=== PATIENT | female | born 1990 | race Caucasian/White ===

== ENCOUNTER 2016-08-19 03:05 | Inpatient (IN) | payer BC ==
[2016-08-19] MEDS ORDERED: Lidocaine 1% 50 ML MDV INJECT PRN (03:45)
[2016-08-19] MEDS ORDERED: Nalbuphine 20 MG/1 ML Amp IVPUSH PRN (03:45)
[2016-08-19] MEDS ORDERED: Oxytocin/Lactated Ringers 10 UNIT/1,000 ML BAG IV SCH ×2 (03:45→09:00)
[2016-08-19] MEDS ORDERED: Sodium Chloride 0.9% 10 ML Syringe FLUSH PRN (03:45)
[2016-08-19] MEDS: Lactated Ringers 1,000 ML IV SCH ×3 (03:50→07:55)
[2016-08-19] MEDS ORDERED: Ampicillin 2 GM in Sodium Chloride 0.9% 100 ML IV ONE (04:00)
[2016-08-19] MEDS ORDERED: ePHEDrine 50 MG/ML SDV IVPUSH PRN (04:05)
[2016-08-19] MEDS ORDERED: fentaNYL 100 MCG/2 ML SDV EPIDUR PRN (04:05)
[2016-08-19] MEDS ORDERED: diphenhydrAMINE 50 MG/ML SDV IVPUSH PRN (04:05)
[2016-08-19] MEDS ORDERED: Ondansetron 4 MG/2 ML SDV IVPUSH PRN (04:05)
--- NOTE | 2016-08-19 04:12 | PCM.PREANE ---
Preanesthetic Assessment - Anesthesia/Transfusion/Family Hx Anesthesia History: Prior Anesthesia Without Reaction Family History of Anesthesia Reaction: No Transfusion History: No Prior Transfusion(s) Intubation History: Unknown - Review of Systems General: No Symptoms Pulmonary: No Symptoms Cardiovascular: No Symptoms Gastrointestinal: Other (GERD) Neurological: No Symptoms Other: Reports: None - Physical Assessment NPO Status Date: 08/18/16 NPO Status Time: 21:00 Pulse: 87 O2 Sat by Pulse Oximetry: 98 Respiratory Rate: 22 Blood Pressure: 144/86 Height: 1.68 m Weight: 97.704 kg Mental Status: Alert & Oriented x3 Airway Class: Mallampati = 2 Dentition: Reports: Normal Dentition Thyro-Mental Finger Breadths: 3 Mouth Opening Finger Breadths: 3 ROM/Head Extension: Full Lungs: Clear to auscultation, Normal respiratory effort Cardiovascular: Regular Rate, Regular Rhythm - Lab Values: Laboratory Last Values WBC 8.72 K/mm3 (3.98-10.04) 08/19/16 03:45 RBC 4.26 M/mm3 (3.98-5.22) 08/19/16 03:45 Hgb 13.0 gm/L (11.2-15.7) 08/19/16 03:45 Hct 38.0 % (34.1-44.9) 08/19/16 03:45 MCV 89.2 fl (79.4-94.8) 08/19/16 03:45 MCH 30.5 pg (25.6-32.2) 08/19/16 03:45 MCHC 34.2 g/dl (32.2-35.5) 08/19/16 03:45 RDW Std Deviation 45.5 fL (36.4-46.3) 08/19/16 03:45 Plt Count 178 K/mm3 (182-369) L 08/19/16 03:45 MPV 11.3 fl (9.4-12.3) 08/19/16 03:45 - Allergies Allergies/Adverse Reactions: Allergies Allergy/AdvReac Type Severity Reaction Status Date / Time No Known Allergies Allergy Verified 08/19/16 03:45 - Blood Blood Available: No Product(s) Available: None - Acknowledgements Anesthesia Type Planned: Epidural Pt an Appropriate Candidate for the Planned Anesthesia: Yes Alternatives and Risks of Anesthesia Discussed w Pt/Guardian: Yes Pt/Guardian Understands and Agrees with Anesthesia Plan: Yes PreAnesthesia Questionnaire - SUBSTANCE USE Smoking Status *Q: Never Smoker Second Hand Smoke Exposure: No Recreational Drug Use History: No - CURRENT (IN HOUSE) MEDS Current Meds: Current Medications Ampicillin Sodium 1 gm/ Sodium (Chloride) 100 mls @ 200 mls/hr IV Q4H MARY JANE Ampicillin Sodium 2 gm/ Sodium (Chloride) 100 mls @ 200 mls/hr IV ONETIME ONE Stop: 08/19/16 04:29 Lactated Ringer's (Ringers, Lactated) 1,000 mls @ 100 mls/hr IV ASDIRECTED MARY JANE Oxytocin/Lactated Ringer's (Pitocin In Lr 10 Units/1,000 Ml) 10 unit in 1,000 mls @ 500 mls/hr IV TITRATE MARY JANE Lidocaine HCl (Xylocaine 1%) 10 ml INJECT ONETIME PRN PRN Reason: Perineal Comfort Measure Nalbuphine HCl (Nubain) 10 mg IVPUSH Q2H PRN PRN Reason: Pain (moderate 4-6) Sodium Chloride (Saline Flush) 10 ml FLUSH ASDIRECTED PRN PRN Reason: Keep Vein Open
[2016-08-19] MEDS ORDERED: Bupivacaine/fentaNYL/NS 100 ML Bag EPIDUR SCH (04:15)
[2016-08-19] MEDS ORDERED: Ampicillin 1 GM in Sodium Chloride 0.9% 100 ML IV SCH (08:00)
--- NOTE | 2016-08-19 09:30 | PCM.HP ---
H&P History of Present Illness - General Date of Service: 08/19/16 Admit Problem/Dx: Admission Diagnosis/Problem Admission Diagnosis/Problem Source of Information: Patient History Limitations: Reports: No Limitations - History of Present Illness Initial Comments - Free Text/Narative: 25 year old at 38 3/7 with onset of labor overnight. Presents 7 cm dilated. 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: Musculoskeletal History: Reports: Back Pain, Chronic, Other (See Below) Other Musculoskeletal History: broke back-spondylosis L5 Psychiatric History: Reports: Depression Hematologic History: Reports: Anemia - Past Surgical History HEENT Surgical History: Reports: Oral Surgery Musculoskeletal Surgical History: Reports: None Social & Family History - Family History Family Medical History: Noncontributory - Tobacco Use Smoking Status *Q: Never Smoker Second Hand Smoke Exposure: No - Caffeine Use Caffeine Use: Reports: Soda - Recreational Drug Use Recreational Drug Use: No H&P Review of Systems - Review of Systems: Review Of Systems: See Below General: Reports: No Symptoms HEENT: Reports: No Symptoms Pulmonary: Reports: No Symptoms Cardiovascular: Reports: No Symptoms Gastrointestinal: Reports: No Symptoms Genitourinary: Reports: No Symptoms Musculoskeletal: Reports: No Symptoms Skin: Reports: No Symptoms Psychiatric: Reports: No Symptoms Neurological: Reports: No Symptoms Hematologic/Lymphatic: Reports: No Symptoms Immunologic: Reports: No Symptoms Exam - Exam Exam: See Below - Vital Signs Vital Signs: Last Vital Signs Temp 36.6 C 08/19/16 03:46 Pulse 87 08/19/16 04:12 Resp 22 H 08/19/16 04:12 BP 144/86 H 08/19/16 04:12 Pulse Ox 98 08/19/16 04:12 Weight: 97.704 kg - Exam General: Alert, Oriented, 4 HEENT: PERRLA, Hearing Intact, Mucosa Moist & [place]man, Nares Patent, Normal Nasal Septum, Posterior Pharynx Clear, Conjunctiva Clear, EOMI, EACs Clear, TMs Clear Neck: Supple, Trachea Midline, 2 Lungs: Clear to Auscultation, Normal Respiratory Effort Cardiovascular: Regular Rate, Regular Rhythm Abdomen: Normal Bowel Sounds, Soft (Female) Exam: Normal External Exam, Normal Speculum Exam, Normal Bimanual Exam Back Exam: Normal Inspection, Full Range of Motion, NT Extremities: 3, Normal Inspection, 10 Skin: Warm, Dry, Intact Neurological: Cranial Nerves Intact, Reflexes Equal Bilateral Neuro Extensive - Mental Status: Alert, Oriented x3, Normal Mood/Affect, Normal Cognition Neuro Extensive - Motor, Sensory, Reflexes: CN II-XII Intact, Normal Gait, Normal Reflexes Psychiatric: Alert, Normal Affect, Normal Mood - Patient Data Lab Results last 24 hrs: Laboratory Results - last 24 hr 08/19/16 Range/Units 03:45 WBC 8.72 (3.98-10.04) K/mm3 RBC 4.26 (3.98-5.22) M/mm3 Hgb 13.0 (11.2-15.7) gm/L Hct 38.0 (34.1-44.9) % MCV 89.2 (79.4-94.8) fl MCH 30.5 (25.6-32.2) pg MCHC 34.2 (32.2-35.5) g/dl RDW Std Deviation 45.5 (36.4-46.3) fL Plt Count 178 L (182-369) K/mm3 MPV 11.3 (9.4-12.3) fl Result Diagrams: 08/19/16 03:45 *Q Meaningful Use (ADM) - VTE *Q VTE Criteria *Q: - Stroke *Q Stroke Criteria *Q: - AMI *Q AMI Criteria *Q: Problem List Initiated/Reviewed/Updated: Yes Orders Last 24hrs: Active Orders 24 hr Category Date Time Status Patient Status [ADT] Routine ADT 08/19/16 03:46 Active Activity as Tolerated [RC] PFP Care 08/19/16 03:46 Active Communication Order [RC] ASDIRECTED Care 08/19/16 03:46 Active Heart Tones [RC] ASDIRECTED Care 08/19/16 03:47 Active Notify Provider [RC] PFP Care 08/19/16 03:46 Active Notify Provider [RC] PRN Care 08/19/16 03:46 Active Peripheral IV Care [RC] . DIRECTED Care 08/19/16 03:47 Active Vital Signs [RC] PER UNIT ROUTINE Care 08/19/16 03:46 Active Clear Liquid Diet [DIET] Diet 08/19/16 Breakfast Active TYPE AND SCREEN [BBK] Stat Lab 08/19/16 09:23 Ordered Ampicillin 1 gm Med 08/19/16 08:00 Active Sodium Chloride 0.9% [Normal Saline] 100 ml IV Q4H Bupivacaine/fentaNYL/NS [fentaNYL/Bupivacaine/NS 2 MCG- Med 08/19/16 04:15 Active 0.125% 100 ML] 100 ml EPIDUR ASDIRECTED Lactated Ringers [Ringers, Lactated] 1,000 ml Med 08/19/16 03:45 Active IV ASDIRECTED Lidocaine 1% [Xylocaine 1%] Med 08/19/16 03:45 Active 10 ml INJECT ONETIME PRN Nalbuphine [Nubain] Med 08/19/16 03:45 Active 10 mg IVPUSH Q2H PRN Ondansetron [Zofran] Med 08/19/16 04:05 Active 4 mg IVPUSH ONETIME PRN Oxytocin/Lactated Ringers [Pitocin in LR 10 Units/1,000 Med 08/19/16 03:45 Active ML] 10 unit in 1,000 ml IV TITRATE Oxytocin/Lactated Ringers [Pitocin in LR 10 Units/1,000 Med 08/19/16 09:00 Active ML] 10 unit in 1,000 ml IV TITRATE Sodium Chloride 0.9% [Saline Flush] Med 08/19/16 03:45 Active 10 ml FLUSH ASDIRECTED PRN diphenhydrAMINE [Benadryl] Med 08/19/16 04:05 Active 25 mg IVPUSH Q6H PRN ePHEDrine [ePHEDrine Sulfate] Med 08/19/16 04:05 Active 5 mg IVPUSH ASDIRECTED PRN fentaNYL [Sublimaze] Med 08/19/16 04:05 Active 100 mcg EPIDUR Q3H PRN Electronic Heart Tones Ext w TOCO [WOMSER] Oth 08/19/16 03:46 Ordered Routine Electronic Heart Tones Internal [WOMSER] Per Unit Oth 08/19/16 03:46 Ordered Routine Peripheral IV Insertion Adult [OM.PC] Routine Oth 08/19/16 03:46 Ordered Resuscitation Status Routine Resus Stat 08/19/16 03:45 Ordered Medication Orders Diphenhydramine HCl (Benadryl) 25 mg IVPUSH Q6H PRN PRN Reason: Pruritis Ephedrine Sulfate (Ephedrine Sulfate) 5 mg IVPUSH ASDIRECTED PRN PRN Reason: Hypotension Fentanyl (Sublimaze) 100 mcg EPIDUR Q3H PRN PRN Reason: Pain Last Admin: 08/19/16 04:32 Dose: 100 mcg Fentanyl/Bupivacaine HCl (Fentanyl/Bupivacaine/Ns 2 Mcg-0.125% 100 Ml) 100 ml EPIDUR ASDIRECTED MARY JANE Last Admin: 08/19/16 04:33 Dose: 100 ml Ampicillin Sodium 1 gm/ Sodium (Chloride) 100 mls @ 200 mls/hr IV Q4H MARY JANE Last Admin: 08/19/16 08:25 Dose: 200 mls/hr Lactated Ringer's (Ringers, Lactated) 1,000 mls @ 100 mls/hr IV ASDIRECTED [facility] Last Admin: 08/19/16 07:55 Dose: 500 mls/hr Infusion: 08/19/16 06:51 Dose: 500 mls/hr Admin: 08/19/16 04:51 Dose: 500 mls/hr Infusion: 08/19/16 04:51 Dose: 999 mls/hr Admin: 08/19/16 03:50 Dose: 999 mls/hr Oxytocin/Lactated Ringer's (Pitocin In Lr 10 Units/1,000 Ml) 10 unit in 1,000 mls @ 500 mls/hr IV TITRATE MARY JANE Oxytocin/Lactated Ringer's (Pitocin In Lr 10 Units/1,000 Ml) 10 unit in 1,000 mls @ 12 mls/hr IV TITRATE MARY JANE; 2 MUNITS/MIN PRN Reason: Protocol Last Titration: 08/19/16 09:19 Dose: 4 munits/min, 24 mls/hr Admin: 08/19/16 08:48 Dose: 2 munits/min, 12 mls/hr Lidocaine HCl (Xylocaine 1%) 10 ml INJECT ONETIME PRN PRN Reason: Perineal Comfort Measure Nalbuphine HCl (Nubain) 10 mg IVPUSH Q2H PRN PRN Reason: Pain (moderate 4-6) Ondansetron HCl (Zofran) 4 mg IVPUSH ONETIME PRN PRN Reason: Nausea/Vomiting Sodium Chloride (Saline Flush) 10 ml FLUSH ASDIRECTED PRN PRN Reason: Keep Vein Open Assessment/Plan Comment:: Term labor. Epidural in place. Progressing well. Anticipate .
[2016-08-19] MEDS ORDERED: Benzocaine/Menthol 20%-0.5% Spray 56 GM Canister TOP PRN (11:15)
[2016-08-19] MEDS ORDERED: Lanolin 100% Cream 7 GM Tube TOP PRN (11:15)
[2016-08-19] MEDS ORDERED: Docusate Sodium 100 MG Cap PO PRN (11:15)
[2016-08-19] MEDS ORDERED: Ibuprofen 600 MG Tab PO PRN (11:15)
[2016-08-19] MEDS ORDERED: Witch Hazel Medicated Pads 100/Jar TOP PRN (11:15)
--- NOTE | 2016-08-19 20:56 | PCM48HPAN ---
Post Anesthesia Note - EVALUATION WITHIN 48HRS OF ANESTHETIC Vital Signs in Normal Range: Yes Patient Participated in Evaluation: Yes Respiratory Function Stable: Yes Airway Patent: Yes Cardiovascular Function Stable: Yes Hydration Status Stable: Yes Pain Control Satisfactory: Yes Nausea and Vomiting Control Satisfactory: Yes Mental Status Recovered: Yes
[2016-08-19] MEDS ORDERED: ePHEDrine 50 MG/ML SDV ONE (22:22)
[2016-08-19] MEDS ORDERED: Bupivacaine 0.25% 10 ML SDV ONE (22:22)
--- NOTE | 2016-08-20 06:28 | PCM.PNPP ---
- General Info Date of Service: 08/20/16 Functional Status: Reports: pain controlled - Review of Systems General: Reports: No Symptoms HEENT: Reports: no symptoms Pulmonary: Reports: no symptoms Cardiovascular: Reports: No Symptoms Gastrointestinal: Reports: No symptoms Genitourinary: Reports: no symptoms Musculoskeletal: Reports: no symptoms Skin: Reports: no symptoms Neurological: Reports: No Symptoms Psychiatric: Reports: no symptoms - General Info Date of Service: 08/20/16 - Patient Data Vital Signs - most recent: Last Vital Signs Temp 37.0 C 08/19/16 20:00 Pulse 93 08/19/16 20:45 Resp 16 08/19/16 20:00 BP 119/54 L 08/19/16 20:45 Pulse Ox 97 08/19/16 20:45 Weight - most recent: 97.704 kg I&O - last 24 hours: Intake & Output 08/19/16 08/19/16 08/20/16 14:59 22:59 06:59 Intake Total 3175 120 Balance 3175 120 Lab Results - last 24 hrs: Laboratory Results - last 24 hr 08/19/16 Range/Units 03:45 Blood Type A POSITIVE Gel Antibody Screen Negative Med Orders - Current: Current Medications Benzocaine/Menthol (Dermoplast Pain Relief [place]) 0 gm TOP ASDIRECTED PRN PRN Reason: Perineal Comfort Measure Last Admin: 08/19/16 12:05 Dose: 1 applic Docusate Sodium (Colace) 100 mg PO BID PRN PRN Reason: Constipation Emollient Ointment (Lansinoh Hpa) 0 gm TOP ASDIRECTED PRN PRN Reason: Sore Nipples Ibuprofen (Motrin) 600 mg PO Q6H PRN PRN Reason: Mild pain or fever Witch Audrey (Tucks) 1 pad TOP ASDIRECTED PRN PRN Reason: Hemorrhoid pain Last Admin: 08/19/16 12:05 Dose: 1 applic Discontinued Medications Diphenhydramine HCl (Benadryl) 25 mg IVPUSH Q6H PRN PRN Reason: Pruritis Ephedrine Sulfate (Ephedrine Sulfate) 5 mg IVPUSH ASDIRECTED PRN PRN Reason: Hypotension Fentanyl (Sublimaze) 100 mcg EPIDUR Q3H PRN PRN Reason: Pain Last Admin: 08/19/16 04:32 Dose: 100 mcg Fentanyl/Bupivacaine HCl (Fentanyl/Bupivacaine/Ns 2 Mcg-0.125% 100 Ml) 100 ml EPIDUR ASDIRECTED MARY JANE Last Admin: 08/19/16 04:33 Dose: 100 ml Ampicillin Sodium 1 gm/ Sodium (Chloride) 100 mls @ 200 mls/hr IV Q4H MARY JANE Last Admin: 08/19/16 08:25 Dose: 200 mls/hr Ampicillin Sodium 2 gm/ Sodium (Chloride) 100 mls @ 200 mls/hr IV ONETIME ONE Stop: 08/19/16 04:29 Last Admin: 08/19/16 04:27 Dose: 200 mls/hr Lactated Ringer's (Ringers, Lactated) 1,000 mls @ 100 mls/hr IV ASDIRECTED [facility] Last Admin: 08/19/16 07:55 Dose: 500 mls/hr Oxytocin/Lactated Ringer's (Pitocin In Lr 10 Units/1,000 Ml) 10 unit in 1,000 mls @ 500 mls/hr IV TITRATE MARY JANE Oxytocin/Lactated Ringer's (Pitocin In Lr 10 Units/1,000 Ml) 10 unit in 1,000 mls @ 12 mls/hr IV TITRATE MARY JANE; 2 MUNITS/MIN PRN Reason: Protocol Last Titration: 08/19/16 09:25 Dose: 0 munits/min, 0 mls/hr Lidocaine HCl (Xylocaine 1%) 10 ml INJECT ONETIME PRN PRN Reason: Perineal Comfort Measure Nalbuphine HCl (Nubain) 10 mg IVPUSH Q2H PRN PRN Reason: Pain (moderate 4-6) Ondansetron HCl (Zofran) 4 mg IVPUSH ONETIME PRN PRN Reason: Nausea/Vomiting Sodium Chloride (Saline Flush) 10 ml FLUSH ASDIRECTED PRN PRN Reason: Keep Vein Open - Interaction Support Person: - Recovery Exam Fundal Tone: Firm Fundal Level: 1 Fingerbreadths Above Umbilicus Fundal Placement: Left Lochia Amount: Small Lochia Color: Rubra/Red Perineum Description: Edematous Episiotomy/Laceration: Approximated Bladder Status: Voiding Urinary Elimination: Other (see below) Other Urinary Elimination, : uterus displaced to left; pt states she needs to void - Exam General: alert, oriented HEENT: Pupils equal Neck: supple Lungs: Clear to auscultation, Normal respiratory effort Cardiovascular: Regular Rate, Regular Rhythm Abdomen: bowel sounds present, soft, no tenderness, no distension Extremities: no edema Skin: warm, dry, intact Neurological: no new focal deficit Psy/Mental Status: alert, normal affect, normal mood - Problem List Review Problem List Initiated/Reviewed/Updated: Yes - My Orders Last 24 Hours: My Active Orders 08/19/16 11:15 Activity as Tolerated [RC] PER UNIT ROUTINE Vital Signs [RC] 12,20,04 Benzocaine/Menthol [Dermoplast Pain Relief [place]] See Dose Instructions TOP ASDIRECTED PRN Docusate Sodium [Colace] 100 mg PO BID PRN Ibuprofen [Motrin] 600 mg PO Q6H PRN Lanolin [Lansinoh HPA] See Dose Instructions TOP ASDIRECTED PRN Witch Audrey [Tucks] 1 pad TOP ASDIRECTED PRN Assess Lochia [WOMSER] Per Unit Routine Assess Uterine Involution [WOMSER] Per Unit Routine Breast Pump [WOMSER] Per Unit Routine Heat Therapy [OM.PC] PRN Medication Administration Instruction [OM.PC] Routine Perineal Care [OM.PC] Per Unit Routine Sitz Bath [OM.PC] Per Unit Routine 08/19/16 Lunch Regular Diet [DIET] 08/20/16 11:15 Heat Therapy [OM.PC] PRN - Assessment Assessment:: Term labor and delivery. Doing well. Was GBS positive Plan discharge tomorrow. - Plan Plan:: Term labor. Epidural in place. Progressing well. Anticipate .
--- NOTE | 2016-08-21 09:02 | PCM.DCSUM1 ---
Discharge Summary - Hospital Course Brief History: 25 year old presented in labor. Uncomplicated 5.12.17. Routine course. - Discharge Data Discharge Date: 08/21/16 Discharge Disposition: Home, Self-Care 01 Condition: Good - Patient Instructions Diet: Usual Diet as Tolerated Activity: No Strenuous Activities Activity, Other: pelvic rest Driving: May Drive Today Showering/Bathing: May Shower Notify Provider of: Fever, Increased Pain, Swelling and Redness, Drainage, Nausea and/or Vomiting - Discharge Plan Referrals: Lili De Souza MD [Primary Care Provider] - (6 weeks) - Discharge Summary/Plan Comment DC Time >30 min.: No - General Info Date of Service: 08/21/16 - Review of Systems General: Reports: No Symptoms HEENT: Reports: no symptoms Pulmonary: Reports: no symptoms Cardiovascular: Reports: No Symptoms Gastrointestinal: Reports: No symptoms Genitourinary: Reports: no symptoms Musculoskeletal: Reports: no symptoms Skin: Reports: no symptoms Neurological: Reports: No Symptoms Psychiatric: Reports: no symptoms - Patient Data Vitals - Most Recent: Last Vital Signs Temp 36.9 C 08/21/16 03:51 Pulse 63 08/21/16 03:51 Resp 14 08/21/16 03:51 BP 117/62 08/21/16 03:51 Pulse Ox 96 08/21/16 03:51 Weight - Most Recent: 97.704 kg I&O - Last 24 hours: Intake & Output 08/20/16 08/21/16 08/21/16 22:59 06:59 14:59 Intake Total 210 Balance 210 Med Orders - Current: Current Medications Benzocaine/Menthol (Dermoplast Pain Relief [place]) 0 gm TOP ASDIRECTED PRN PRN Reason: Perineal Comfort Measure Last Admin: 08/19/16 12:05 Dose: 1 applic Docusate Sodium (Colace) 100 mg PO BID PRN PRN Reason: Constipation Emollient Ointment (Lansinoh Hpa) 0 gm TOP ASDIRECTED PRN PRN Reason: Sore Nipples Ibuprofen (Motrin) 600 mg PO Q6H PRN PRN Reason: Mild pain or fever Witch Audrey (Tucks) 1 pad TOP ASDIRECTED PRN PRN Reason: Hemorrhoid pain Last Admin: 08/19/16 12:05 Dose: 1 applic Discontinued Medications Diphenhydramine HCl (Benadryl) 25 mg IVPUSH Q6H PRN PRN Reason: Pruritis Ephedrine Sulfate (Ephedrine Sulfate) 5 mg IVPUSH ASDIRECTED PRN PRN Reason: Hypotension Fentanyl (Sublimaze) 100 mcg EPIDUR Q3H PRN PRN Reason: Pain Last Admin: 08/19/16 04:32 Dose: 100 mcg Fentanyl/Bupivacaine HCl (Fentanyl/Bupivacaine/Ns 2 Mcg-0.125% 100 Ml) 100 ml EPIDUR ASDIRECTED MARY JANE Last Admin: 08/19/16 04:33 Dose: 100 ml Ampicillin Sodium 1 gm/ Sodium (Chloride) 100 mls @ 200 mls/hr IV Q4H MARY JANE Last Admin: 08/19/16 08:25 Dose: 200 mls/hr Ampicillin Sodium 2 gm/ Sodium (Chloride) 100 mls @ 200 mls/hr IV ONETIME ONE Stop: 08/19/16 04:29 Last Admin: 08/19/16 04:27 Dose: 200 mls/hr Lactated Ringer's (Ringers, Lactated) 1,000 mls @ 100 mls/hr IV ASDIRECTED MARY JANE Last Admin: 08/19/16 07:55 Dose: 500 mls/hr Oxytocin/Lactated Ringer's (Pitocin In Lr 10 Units/1,000 Ml) 10 unit in 1,000 mls @ 500 mls/hr IV TITRATE MARY JANE Oxytocin/Lactated Ringer's (Pitocin In Lr 10 Units/1,000 Ml) 10 unit in 1,000 mls @ 12 mls/hr IV TITRATE MARY JANE; 2 MUNITS/MIN PRN Reason: Protocol Last Titration: 08/19/16 09:25 Dose: 0 munits/min, 0 mls/hr Lidocaine HCl (Xylocaine 1%) 10 ml INJECT ONETIME PRN PRN Reason: Perineal Comfort Measure Nalbuphine HCl (Nubain) 10 mg IVPUSH Q2H PRN PRN Reason: Pain (moderate 4-6) Ondansetron HCl (Zofran) 4 mg IVPUSH ONETIME PRN PRN Reason: Nausea/Vomiting Sodium Chloride (Saline Flush) 10 ml FLUSH ASDIRECTED PRN PRN Reason: Keep Vein Open - Exam General: Reports: alert, oriented HEENT: Reports: Pupils equal, Pupils reactive, EOMI, Mucous membr. moist/pink Neck: Reports: supple Lungs: Reports: Clear to auscultation, Normal respiratory effort Cardiovascular: Reports: Regular Rate, Regular Rhythm Abdomen: Reports: bowel sounds present, soft, no tenderness, no distension (Female) Exam: Normal External Exam Back Exam: Reports: Normal Inspection, Full Range of Motion Extremities: Reports: no edema, normal pulses Skin: Reports: warm, dry, intact Wound/Incisions: Reports: healing well Neurological: Reports: no new focal deficit Psy/Mental Status: Reports: alert, normal affect, normal mood *Q Meaningful Use (DIS) - VTE *Q VTE Criteria *Q: - Stroke *Q Stroke Criteria *Q: - AMI *Q AMI Criteria *Q:
[2016-08-21 14:54] VITALS: BP 111/57
== END 2016-08-21 17:30 | disposition home or self-care (01) | DRG 560 ==
LOC: JD.OBCHECK 03:05 → JD.OB 03:05 → JD.OBCHECK 03:45 → JD.OB 03:46 → OBSVTOIN 09:58 → JD.OB 14:47
PROVIDERS: ADMIT Obstetrics & Gynecology; ATTEND Obstetrics & Gynecology
PROC: 10E0XZZ Delivery of Products of Conception, External Approach (ICD-10-PCS; principal; 2016-08-19)
PROC: 0KQM0ZZ Repair Perineum Muscle, Open Approach (ICD-10-PCS; 2016-08-19)
PROC: 00HU33Z Insertion of Infusion Device into Spinal Canal, Percutaneous Approach (ICD-10-PCS; 2016-08-19)
PROC: 3E0R3CZ (ICD-10-PCS; 2016-08-19)
DX: O99.824 Streptococcus B carrier state complicating childbirth (principal); Z3A.38 38 weeks gestation of pregnancy; Z37.0 Single live birth; O70.1 Second degree perineal laceration during delivery
CPT/HCPCS: 36415; 85027; 86850; 86900; 86901; A9270-GY; J0290; J2590; J3010; J7030; J7120

== ENCOUNTER 2018-09-06 20:46 | Inpatient (IN) | payer BC ==
[2018-09-06] MEDS ORDERED: Sodium Chloride 0.9% 10 ML Syringe FLUSH PRN (23:16)
[2018-09-06] MEDS ORDERED: Ondansetron 4 MG/2 ML SDV IVPUSH PRN (23:16)
[2018-09-06] MEDS ORDERED: Nalbuphine 20 MG/ML 1 ML Syringe IVPUSH PRN (23:16)
[2018-09-06] MEDS ORDERED: Ampicillin 2 GM in Sodium Chloride 0.9% 100 ML IV ONE (23:16)
[2018-09-06] MEDS ORDERED: Oxytocin/Lactated Ringers 10 UNIT/1,000 ML BAG IV SCH (23:30)
[2018-09-06] MEDS: Lactated Ringers 1,000 ML IV SCH (23:30)
[2018-09-07] MEDS ORDERED: fentaNYL 100 MCG/2 ML SDV EPIDUR PRN (00:06)
[2018-09-07] MEDS ORDERED: ePHEDrine 50 MG/ML SDV IVPUSH PRN (00:06)
[2018-09-07] MEDS ORDERED: diphenhydrAMINE 50 MG/ML SDV IVPUSH PRN (00:06)
[2018-09-07] MEDS ORDERED: Bupivacaine/fentaNYL/NS 100 ML Bag EPIDUR SCH (00:15)
--- NOTE | 2018-09-07 00:42 | PCM.PREANE ---
Preanesthetic Assessment - Anesthesia/Transfusion/Family Hx Anesthesia History: Prior Anesthesia Without Reaction Family History of Anesthesia Reaction: No Transfusion History: No Prior Transfusion(s) Intubation History: Unknown - Review of Systems General: Fatigue Pulmonary: No Symptoms Cardiovascular: No Symptoms Gastrointestinal: Abdominal Pain (labor contractions ) Neurological: No Symptoms Other: Reports: None - Physical Assessment Pulse: 86 O2 Sat by Pulse Oximetry: 98 Respiratory Rate: 15 Blood Pressure: 164/89 Temperature: 36.3 C Vital Signs: Last Vital Signs Temp 36.9 C 09/06/18 20:55 Pulse 77 09/06/18 20:55 Resp 15 09/06/18 20:55 BP 136/82 09/06/18 20:55 Pulse Ox 98 09/06/18 20:55 Height: 1.68 m Weight: 95.254 kg ASA Class: 2 Mental Status: Alert & Oriented x3 Airway Class: Mallampati = 1 Dentition: Reports: Normal Dentition Thyro-Mental Finger Breadths: 3 Mouth Opening Finger Breadths: 3 ROM/Head Extension: Full Lungs: Clear to Auscultation, Normal Respiratory Effort Cardiovascular: Regular Rate, Regular Rhythm - Lab Values: Laboratory Last Values WBC 10.14 K/mm3 (3.98-10.04) H 09/06/18 23:30 RBC 4.05 M/mm3 (3.98-5.22) 09/06/18 23:30 Hgb 11.9 gm/L (11.2-15.7) 09/06/18 23:30 Hct 35.8 % (34.1-44.9) 09/06/18 23:30 MCV 88.4 fl (79.4-94.8) 09/06/18 23:30 MCH 29.4 pg (25.6-32.2) 09/06/18 23:30 MCHC 33.2 g/dl (32.2-35.5) 09/06/18 23:30 RDW Std Deviation 47.6 fL (36.4-46.3) H 09/06/18 23:30 Plt Count 185 K/mm3 (182-369) 09/06/18 23:30 MPV 11.1 fl (9.4-12.3) 09/06/18 23:30 Neut % (Auto) 66.9 % (34.0-71.1) 09/06/18 23:30 Lymph % (Auto) 21.7 % (19.3-51.7) 09/06/18 23:30 [place] % (Auto) 10.7 % (4.7-12.5) 09/06/18 23:30 Eos % (Auto) 0.2 (0.7-5.8) L 09/06/18 23:30 Baso % (Auto) 0.1 % (0.1-1.2) 09/06/18 23:30 Neut # (Auto) 6.78 K/mm3 (1.56-6.13) H 09/06/18 23:30 Lymph # (Auto) 2.20 K/mm3 (1.18-3.74) 09/06/18 23:30 [place] # (Auto) 1.09 K/mm3 (0.24-0.36) H 09/06/18 23:30 Eos # (Auto) 0.02 K/mm3 (0.04-0.36) L 09/06/18 23:30 Baso # (Auto) 0.01 K/mm3 (0.01-0.08) 09/06/18 23:30 - Allergies Allergies/Adverse Reactions: Allergies Allergy/AdvReac Type Severity Reaction Status Date / Time No Known Allergies Allergy Verified 08/19/16 03:45 - Acknowledgements Anesthesia Type Planned: Epidural Pt an Appropriate Candidate for the Planned Anesthesia: Yes Alternatives and Risks of Anesthesia Discussed w Pt/Guardian: Yes Pt/Guardian Understands and Agrees with Anesthesia Plan: Yes PreAnesthesia Questionnaire HEENT History: Reports: None Gastrointestinal History: Reports: [employer] History: Reports: Musculoskeletal History: Reports: Back Pain, Chronic, Other (See Below) Other Musculoskeletal History: broke back-spondylosis L5 Psychiatric History: Reports: Depression Hematologic History: Reports: Anemia - Past Surgical History HEENT Surgical History: Reports: Oral Surgery Musculoskeletal Surgical History: Reports: None - CURRENT (IN HOUSE) MEDS Current Meds: Current Medications Diphenhydramine HCl (Benadryl) 25 mg IVPUSH Q6H PRN PRN Reason: Itching Ephedrine Sulfate (Ephedrine Sulfate) 5 mg IVPUSH ASDIRECTED PRN PRN Reason: HYPOTENTSION Fentanyl (Sublimaze) 100 mcg EPIDUR Q3H PRN PRN Reason: Pain Last Admin: 09/07/18 00:31 Dose: 100 mcg Fentanyl/Bupivacaine HCl (Fentanyl/Bupivacaine/Ns 2 Mcg-0.125% 100 Ml) 100 ml EPIDUR ASDIRECTED [facility] Last Admin: 09/07/18 00:32 Dose: 100 ml Lactated Ringer's (Ringers, Lactated) 1,000 mls @ 100 mls/hr IV ASDIRECTED [facility] Last Admin: 09/06/18 23:30 Dose: 999 mls/hr Ampicillin Sodium 1 gm/ Sodium (Chloride) 100 mls @ 200 mls/hr IV Q4H MARY JANE Oxytocin/Lactated Ringer's (Pitocin In Lr 10 Units/1,000 Ml) 10 unit in 1,000 mls @ 500 mls/hr IV .CONTINUOUS MARY JANE Nalbuphine HCl (Nubain) 10 mg IVPUSH Q2H PRN PRN Reason: pain Ondansetron HCl (Zofran) 4 mg IVPUSH Q4H PRN PRN Reason: Nausea/Vomiting Sodium Chloride (Saline Flush) 10 ml FLUSH ASDIRECTED PRN PRN Reason: Keep Vein Open Discontinued Medications Ampicillin Sodium 2 gm/ Sodium (Chloride) 100 mls @ 200 mls/hr IV ONETIME ONE Stop: 09/06/18 23:45 Last Admin: 09/06/18 23:38 Dose: 200 mls/hr
[2018-09-07] MEDS: Lactated Ringers 1,000 ML IV SCH (01:09)
[2018-09-07] MEDS ORDERED: Ampicillin 1 GM in Sodium Chloride 0.9% 100 ML IV SCH (03:00)
--- NOTE | 2018-09-07 03:38 | PCM.LDHP ---
L&D History of Present Illness - General Date of Service: 09/07/18 Admit Problem/Dx: Patient Status Order with Admit Dx/Problem 09/06/18 20:55 Patient Status [ADT] Routine 09/06/18 23:16 Patient Status [ADT] Routine Admission Diagnosis/Problem Admission Diagnosis/Problem 09/07/18 03:23 Leta is a 27-year-old 2 para 1001 white female with an JUAN R of 09/14/2018 was admitted in active labor with an tractions every 2-3 minutes and with cervical change. Source of Information: Patient History Limitations: Reports: No Limitations - History of Present Illness Introduction:: Leta is a 27-year-old 2 para 1001 white female was admitted in active labor. She has had cervical change with contractions coming every 2-3 minutes. JUAN R is 09/14/2018 is based upon her last menstrual period which started on 2017. This is supported by ultrasound done during . Patient seen on a regular basis throughout care starting at approximately 10 weeks and 5 days until the present time. Her weight gain was from 170-208 pounds. Fundal height growth looked normal. Laboratory testing show blood to be A+ with negative antibody screen. First hemoglobin was 12.9 g/dL. Platelets are 225,000. Rubella Titer showed immunity. RPR was nonreactive. Syphilis was nonreactive. Hepatitis B surface antigen was nonreactive. Second trimester labs showed hemoglobin of 11.1 g/dL with platelets of 183,000. Her 1 hour glucose was 84 mg/dL which was normal. TSH was 1.22. Group B strep was noted and therefore was a candidate for antibiotic prophylaxis. Allergies: Bee stings Medications: vitamins daily Past medical history: Patient has had a history of anemia. She also spondylolysis of lumbar region. Past surgical history: [place] teeth extraction Family history: Maternal grandfather with Alzheimer's disease. Cancer in her maternal grandmothercolorectal in her paternal grandfather. Father with type 2 diabetes, gout. Hypertension and hyperlipidemia and melanoma in her father. Token her paternal grandfather. Thyroid disease in her paternal grandmother. Father the baby with heart disease. Social history: Patient is , lives in the [place] area. 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 Dejuan, her , is an network systems engineer with cataracts in [place]. She does not use any significant loss of alcohol, drugs or tobacco. Review of systems: In general patient has no complaints. She is actively rema but hasn't epidural on board. She is very comfortable. Skin: Negative Lungs: No infectious symptoms or shortness of breath Cardiovascular: No chest pain or exercise intolerance Breasts: No lumps, changes in size, pain, dimpling, discharge or axillary or supraclavicular concerns other than those associated with .. GI: Negative : Changes associated with . Musculoskeletal: Negative Neurological: Negative Physical exam: In general patient is a well-developed, well-nourished, pleasant female stated age in no acute distress. She is in active labor. She is comfortable with epidural in place. Last clinic evaluation showed blood pressure 96/68. Pulse is 85. Weight is 208 pounds with first weight of 170 pounds. Temperature is 97.7. Skin is warm dry without lesions. HEENT, neck and back within normal limits. Breasts-changes of . Patient plans to breast-feed Lungs are clear with good breath sounds in all lung snyder. Cardiovascular exam shows regular and rhythm without murmurs. Abdomen is flat, soft, nontender without masses or organomegaly. Positive bowel sounds are noted. No inguinal lymphadenopathy or hernias are noted. Genital exam done by the nurse shows patient is making good progress. Vertex presentation. Spontaneous rupture membranes with clear amniotic fluid. Extremities and neurological exam are grossly within normal limits. 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: Musculoskeletal History: Reports: Back Pain, Chronic, Other (See Below) Other Musculoskeletal History: broke back-spondylosis L5 Psychiatric History: Reports: Depression Hematologic History: Reports: Anemia - Past Surgical History HEENT Surgical History: Reports: Oral Surgery Musculoskeletal Surgical History: Reports: None Social & Family History - Family History Family Medical History: Noncontributory - Caffeine Use Caffeine Use: Reports: Soda H&P Review of Systems - Review of Systems: Review Of Systems: See Below L&D Exam - Exam Exam: See Below - Vital Signs Vital Signs: Last Vital Signs Temp 36.3 C 09/07/18 00:42 Pulse 86 09/07/18 00:42 Resp 15 09/07/18 00:42 BP 164/89 H 09/07/18 00:42 Pulse Ox 98 09/07/18 00:42 Weight: 95.254 kg - Patient Data Lab Results Last 24 hrs: Laboratory Results - last 24 hr 09/06/18 Range/Units 23:30 WBC 10.14 H (3.98-10.04) K/mm3 RBC 4.05 (3.98-5.22) M/mm3 Hgb 11.9 (11.2-15.7) gm/L Hct 35.8 (34.1-44.9) % MCV 88.4 (79.4-94.8) fl MCH 29.4 (25.6-32.2) pg MCHC 33.2 (32.2-35.5) g/dl RDW Std Deviation 47.6 H (36.4-46.3) fL Plt Count 185 (182-369) K/mm3 MPV 11.1 (9.4-12.3) fl Neut % (Auto) 66.9 (34.0-71.1) % Lymph % (Auto) 21.7 (19.3-51.7) % [place] % (Auto) 10.7 (4.7-12.5) % Eos % (Auto) 0.2 L (0.7-5.8) Baso % (Auto) 0.1 (0.1-1.2) % Neut # (Auto) 6.78 H (1.56-6.13) K/mm3 Lymph # (Auto) 2.20 (1.18-3.74) K/mm3 [place] # (Auto) 1.09 H (0.24-0.36) K/mm3 Eos # (Auto) 0.02 L (0.04-0.36) K/mm3 Baso # (Auto) 0.01 (0.01-0.08) K/mm3 Result Diagrams: 09/06/18 23:30 Problem List Initiated/Reviewed/Updated: Yes Orders Last 24hrs: Active Orders 24 hr Category Date Time Status Patient Status [ADT] Routine ADT 09/06/18 23:16 Active Activity as Tolerated [RC] PFP Care 09/06/18 23:16 Active Communication Order [RC] ASDIRECTED Care 09/06/18 23:16 Active Communication Order [RC] ASDIRECTED Care 09/07/18 00:06 Active Cooling Warming Measures [RC] ASDIRECTED Care 09/07/18 00:06 Active Heart Tones [RC] ASDIRECTED Care 09/06/18 23:16 Active Non Stress Test [RC] PER UNIT ROUTINE Care 09/06/18 20:55 Active Non Stress Test [RC] PER UNIT ROUTINE Care 09/06/18 23:16 Active Notify Provider [RC] ASDIRECTED Care 09/07/18 00:06 Active Notify Provider [RC] PFP Care 09/06/18 23:16 Active Notify Provider [RC] PRN Care 09/06/18 23:16 Active Oxygen Therapy [RC] ASDIRECTED Care 09/07/18 00:06 Active Peripheral IV Care [RC] . DIRECTED Care 09/06/18 23:16 Active Pulse Oximetry [RC] ASDIRECTED Care 09/07/18 00:06 Active Vital Signs [RC] PER UNIT ROUTINE Care 09/06/18 20:55 Active Vital Signs [RC] PER UNIT ROUTINE Care 09/06/18 23:16 Active Vital Signs [RC] Q15M Care 09/07/18 00:06 Active Regular Diet [DIET] Diet 09/07/18 Breakfast Active RAPID PLASMA REAGIN,RPR [CHEM] Routine Lab 09/06/18 23:30 Received Ampicillin 1 gm Med 09/07/18 03:00 Active Sodium Chloride 0.9% [Normal Saline] 100 ml IV Q4H Bupivacaine/fentaNYL/NS [fentaNYL/Bupivacaine/NS 2 MCG- Med 09/07/18 00:15 Active 0.125% 100 ML] 100 ml EPIDUR ASDIRECTED Lactated Ringers [Ringers, Lactated] 1,000 ml Med 09/06/18 23:30 Active IV ASDIRECTED Nalbuphine [Nubain] Med 09/06/18 23:16 Active 10 mg IVPUSH Q2H PRN Ondansetron [Zofran] Med 09/06/18 23:16 Active 4 mg IVPUSH Q4H PRN Oxytocin/Lactated Ringers [Pitocin in LR 10 Units/1,000 Med 09/06/18 23:30 Active ML] 10 unit in 1,000 ml IV .CONTINUOUS Sodium Chloride 0.9% [Saline Flush] Med 09/06/18 23:16 Active 10 ml FLUSH ASDIRECTED PRN diphenhydrAMINE [Benadryl] Med 09/07/18 00:06 Active 25 mg IVPUSH Q6H PRN ePHEDrine [ePHEDrine sulfate] Med 09/07/18 00:06 Active 5 mg IVPUSH ASDIRECTED PRN fentaNYL [Sublimaze] Med 09/07/18 00:06 Active 100 mcg EPIDUR Q3H PRN Electronic Heart Tones Ext w TOCO [WOMSER] Oth 09/06/18 23:16 Ordered Routine Electronic Heart Tones Internal [WOMSER] Per Unit Ot 09/06/18 23:16 Ordered Routine Peripheral IV Insertion Adult [OM.PC] Routine Ot 09/06/18 23:16 Ordered Resuscitation Status Routine Resus Stat 09/06/18 20:55 Ordered Medication Orders Diphenhydramine HCl (Benadryl) 25 mg IVPUSH Q6H PRN PRN Reason: Itching Ephedrine Sulfate (Ephedrine Sulfate) 5 mg IVPUSH ASDIRECTED PRN PRN Reason: HYPOTENTSION Fentanyl (Sublimaze) 100 mcg EPIDUR Q3H PRN PRN Reason: Pain Last Admin: 09/07/18 00:31 Dose: 100 mcg Fentanyl/Bupivacaine HCl (Fentanyl/Bupivacaine/Ns 2 Mcg-0.125% 100 Ml) 100 ml EPIDUR ASDIRECTED [facility] Last Admin: 09/07/18 00:32 Dose: 100 ml Lactated Ringer's (Ringers, Lactated) 1,000 mls @ 100 mls/hr IV ASDIRECTED [facility] Last Admin: 09/07/18 01:09 Dose: 999 mls/hr Infusion: 09/07/18 00:31 Dose: 999 mls/hr Admin: 09/06/18 23:30 Dose: 999 mls/hr Ampicillin Sodium 1 gm/ Sodium (Chloride) 100 mls @ 200 mls/hr IV Q4H [facility] Oxytocin/Lactated Ringer's (Pitocin In Lr 10 Units/1,000 Ml) 10 unit in 1,000 mls @ 500 mls/hr IV .CONTINUOUS MARY JANE Nalbuphine HCl (Nubain) 10 mg IVPUSH Q2H PRN PRN Reason: pain Ondansetron HCl (Zofran) 4 mg IVPUSH Q4H PRN PRN Reason: Nausea/Vomiting Sodium Chloride (Saline Flush) 10 ml FLUSH ASDIRECTED PRN PRN Reason: Keep Vein Open Assessment/Plan Comment:: 1. Term intrauterine at 39-0/7 weeks in active labor. 2. B strep positive statuspatient has received antibiotic prophylaxis 3. Rubella immune 4. Epidural in place for labor and analgesia 5. Patient plans to breast-feed Plan: 1. Normal spontaneous vaginal delivery 2. Support breast-feeding decision 3. Continue antibiotic prophylaxis 4. Epidural for labor analgesia. 5. Routine labor care.
--- NOTE | 2018-09-07 03:56 | PCM.SN ---
- Free Text/Narrative Note: Delivery note: Leta is a 27-year-old 2 now para 2002 white female who was admitted in active labor at 39-0/7 weeks with an JUAN R of 09/14/2018. She started labor in the evening her to the date of delivery. She was admitted and monitored for a couple hours during which time she made cervical change and was admitted for labor. Patient progressed to complete cervical dilation and pushed for approximately 40 minutes. At 0330 hrs. on 09/07/2018 the patient delivered a viable, hernandez, male with Apgars of 8 and 9, length of 21.0 inches and weight of 3420 g ( 7 pounds 8.6 ounces) in the left occiput anterior position. She delivered over an intact perineum. Baby was placed on mom's abdomen and the cord was allowed to pulsate for 1-2 minutes. It was then clamped 2 and was cut by the patient herself. Umbilical cord had 3 vessels. Patient was given Pitocin after the baby to facilitate increase in uterine tone and decrease likelihood of bleeding. The placenta delivered at 0335 hrs. in a Abdi presentation,. Intact and complete and was discarded per patient desire. Patient plans to breast-feed. Estimated blood loss was 100 mL. Condition: Good. Baby's name is Cholo Juarez.
[2018-09-07] MEDS ORDERED: Docusate Sodium 100 MG Cap PO PRN (05:15)
[2018-09-07] MEDS ORDERED: Witch Hazel Medicated Pads 40/Jar TOP PRN (05:15)
[2018-09-07] MEDS ORDERED: Ibuprofen 600 MG Tab PO PRN (05:15)
[2018-09-07] MEDS ORDERED: Benzocaine/Menthol 20%-0.5% Spray 56 GM Canister TOP PRN (05:15)
[2018-09-07] MEDS ORDERED: Lanolin 100% Cream 7 GM Tube TOP PRN (05:15)
[2018-09-07] MEDS ORDERED: Acetaminophen 325 MG Tab PO PRN (05:15)
[2018-09-07] MEDS ORDERED: Prenatal Multivitamin with Calcium/Folic Acid/Iron Tab PO SCH (09:00)
--- NOTE | 2018-09-07 09:38 | PCM48HPAN ---
Post Anesthesia Note - EVALUATION WITHIN 48HRS OF ANESTHETIC Vital Signs in Normal Range: Yes Patient Participated in Evaluation: Yes Respiratory Function Stable: Yes Airway Patent: Yes Cardiovascular Function Stable: Yes Hydration Status Stable: Yes Pain Control Satisfactory: Yes Nausea and Vomiting Control Satisfactory: Yes Mental Status Recovered: Yes Pulse Rate: 74 Resp Rate: 14 Temperature: 36.9 C Blood Pressure: 103/61 - COMMENTS/OBSERVATIONS Free Text/Narrative:: no anesthesia complications noted
[2018-09-07] MEDS ORDERED: Bupivacaine 0.25% 10 ML SDV ONE (14:00)
--- NOTE | 2018-09-08 06:33 | PCM.DCSUM1 ---
Discharge Summary - Hospital Course Free Text/Narrative:: Leta is a 27-year-old 2 now para 2002 white female who was admitted in active labor at 39-0/7 weeks with an JUAN R of 09/14/2018. She started labor on the evening prior to the date of delivery. She was admitted and monitored for a couple hours during which time she made cervical change and was admitted for labor. Patient progressed to complete cervical dilation and pushed for approximately 40 minutes. At 0330 hrs. on 09/07/2018 the patient delivered a viable, hernandez, male infant with Apgars of 8 and 9, length of 21.0 inches and weight of 3420 g ( 7 pounds 8.6 ounces) in the left occiput anterior position. She delivered over an intact perineum. Baby was placed on mom's abdomen and the cord was allowed to pulsate for 1-2 minutes. It was then clamped 2 and was cut by the patient herself. Umbilical cord had 3 vessels. Patient was given Pitocin after the baby to facilitate increase in uterine tone and decrease likelihood of bleeding. The placenta delivered at 0335 hrs. in a Abdi presentation,. Intact and complete and was discarded per patient desire. Patient plans to breast-feed. Estimated blood loss was 100 mL. Condition: Good. Baby's name is Cholo Juarez. patient is doing well. She is ambulating well, voiding without problems and nursing without concerns. She is desiring discharge home. Condition : Good Diagnosis: Stroke: No - Discharge Data Discharge Date: 09/08/18 Discharge Disposition: Home, Self-Care 01 Condition: Good - Patient Instructions Diet: Regular Diet as Tolerated (Nursing diet was increased calories and calcium as recommended) Activity: As Tolerated (No intercourse or tampons until bleeding resolves) Driving: May Drive Today Showering/Bathing: May Shower (May take a bath) Notify Provider of: Fever, Increased Pain, Swelling and Redness, Nausea and/or Vomiting - Discharge Plan Home Medications: Home Meds Acetaminophen [Tylenol] 650 mg PO Q4H PRN tablet 09/08/18 [Rx] Docusate Sodium [Colace] 100 mg PO BID PRN cap 09/08/18 [Rx] Ibuprofen [Motrin] 600 mg PO Q4H PRN tablet 09/08/18 [Rx] Vit with Ca/FA/Iron [ Plus Iron] 1 each PO DAILY tablet [Rx] Referrals: Lili De Souza MD [Primary Care Provider] - ([facility] - Discharge Summary/Plan Comment DC Time >30 min.: No Discharge Summary/Plan Comment: Discharge instructions: 1. Discharge home 2. Diet, activity and follow-up discussed with patient. Recommend nursing diet with increased calories and calcium. 3. Precautions given concern increased pain, bleeding, temperature, signs/ symptoms of DVT/PE. 4. Medications per home medication was printed, discussed with and given to the patient. 5. Return to [facility] in 4-6 weeks. Diagnosis: Term -delivered Condition: Good - Patient Data Vitals - Most Recent: Last Vital Signs Temp 36.6 C 09/08/18 05:12 Pulse 70 09/08/18 05:12 Resp 14 09/08/18 05:12 BP 117/87 09/08/18 05:12 Pulse Ox 96 09/08/18 05:12 Weight - Most Recent: 95.254 kg I&O - Last 24 hours: Intake & Output 09/07/18 09/07/18 09/08/18 14:59 22:59 06:59 Intake Total 500 640 Balance 500 640 Lab Results - Last 24 hrs: Laboratory Results - last 24 hr 09/06/18 Range/Units 23:30 RPR Non-reactive (NONREACTIVE) Med Orders - Current: Current Medications Acetaminophen (Tylenol) 650 mg PO Q4H PRN PRN Reason: mild pain or fever Benzocaine/Menthol (Dermoplast Pain Relief [place]) 0 gm TOP ASDIRECTED PRN PRN Reason: Perineal Comfort Measure Docusate Sodium (Colace) 100 mg PO BID PRN PRN Reason: Constipation Emollient Ointment (Lansinoh Hpa) 0 gm TOP ASDIRECTED PRN PRN Reason: Sore Nipples Ibuprofen (Motrin) 600 mg PO Q4H PRN PRN Reason: Mild pain or fever Prenat Multivit/[place]/Iron/Folic Ac ( Plus Iron) 1 each PO DAILY MARY JANE [place] (Tucks) 1 pad TOP ASDIRECTED PRN PRN Reason: Pain Discontinued Medications Diphenhydramine HCl (Benadryl) 25 mg IVPUSH Q6H PRN PRN Reason: Itching Ephedrine Sulfate (Ephedrine Sulfate) 5 mg IVPUSH ASDIRECTED PRN PRN Reason: HYPOTENTSION Fentanyl (Sublimaze) 100 mcg EPIDUR Q3H PRN PRN Reason: Pain Last Admin: 09/07/18 00:31 Dose: 100 mcg Fentanyl/Bupivacaine HCl (Fentanyl/Bupivacaine/Ns 2 Mcg-0.125% 100 Ml) 100 ml EPIDUR ASDIRECTED [facility] Last Admin: 09/07/18 00:32 Dose: 100 ml Ampicillin Sodium 2 gm/ Sodium (Chloride) 100 mls @ 200 mls/hr IV ONETIME ONE Stop: 09/06/18 23:45 Last Admin: 09/06/18 23:38 Dose: 200 mls/hr Lactated Ringer's (Ringers, Lactated) 1,000 mls @ 100 mls/hr IV ASDIRECTED [facility] Last Infusion: 09/07/18 02:00 Dose: 100 mls/hr Ampicillin Sodium 1 gm/ Sodium (Chloride) 100 mls @ 200 mls/hr IV Q4H [facility] Last Admin: 09/07/18 02:50 Dose: 200 mls/hr Oxytocin/Lactated Ringer's (Pitocin In Lr 10 Units/1,000 Ml) 10 unit in 1,000 mls @ 500 mls/hr IV .CONTINUOUS [facility] Last Admin: 09/07/18 03:31 Dose: 500 mls/hr Nalbuphine HCl (Nubain) 10 mg IVPUSH Q2H PRN PRN Reason: pain Ondansetron HCl (Zofran) 4 mg IVPUSH Q4H PRN PRN Reason: Nausea/Vomiting Sodium Chloride (Saline Flush) 10 ml FLUSH ASDIRECTED PRN PRN Reason: Keep Vein Open
[2018-09-08 10:39] VITALS: BP 116/74
== END 2018-09-08 14:30 | disposition home or self-care (01) | DRG 560 ==
LOC: JD.OBCHECK 20:46 → JD.OB 20:47 → JD.OBCHECK 23:16 → OBSVTOIN 09-07 03:30 → INTOOBSV 09-07 03:31 → JD.OB 09-07 03:31
PROVIDERS: ADMIT Obstetrics & Gynecology; ATTEND Obstetrics & Gynecology
PROC: 10E0XZZ Delivery of Products of Conception, External Approach (ICD-10-PCS; principal; 2018-09-07)
PROC: 3E0R3BZ Introduction of Anesthetic Agent into Spinal Canal, Percutaneous Approach (ICD-10-PCS; 2018-09-07)
PROC: 00HU33Z Insertion of Infusion Device into Spinal Canal, Percutaneous Approach (ICD-10-PCS; 2018-09-07)
DX: O99.824 Streptococcus B carrier state complicating childbirth (principal); Z3A.39 39 weeks gestation of pregnancy; Z91.030 Bee allergy status; O99.02 Anemia complicating childbirth; D64.9 Anemia, unspecified; Z37.0 Single live birth; O75.89 Other specified complications of labor and delivery; M47.816 Spondylosis without myelopathy or radiculopathy, lumbar region; O99.354 Diseases of the nervous system complicating childbirth; G89.29 Other chronic pain; O99.344 Other mental disorders complicating childbirth; F32.9 Major depressive disorder, single episode, unspecified; O99.62 Diseases of the digestive system complicating childbirth; K21.9 Gastro-esophageal reflux disease without esophagitis
CPT/HCPCS: 36415; 51702; 59025; 59409; 85025; 86592; J0290; J2590; J3010; J3490; J7030; J7120

== ENCOUNTER 2020-07-29 13:05 | Inpatient (IN) | payer BC ==
[~2020-07-29 13:05] MED LIST: Bupivacaine 0.25% 10 ML SDV ONE
[2020-07-29] MEDS ORDERED: Ondansetron 4 MG/2 ML SDV IVPUSH PRN (14:04)
[2020-07-29] MEDS ORDERED: Sodium Chloride 0.9% 10 ML Syringe FLUSH PRN (14:04)
[2020-07-29] MEDS ORDERED: Nalbuphine 10 MG/1 ML Vial IVPUSH PRN (14:04)
[2020-07-29] MEDS ORDERED: Oxytocin/Lactated Ringers 10 UNIT/1,000 ML BAG IV SCH ×2 (14:15)
[2020-07-29] MEDS ORDERED: fentaNYL 100 MCG/2 ML SDV EPIDUR PRN (15:18)
[2020-07-29] MEDS ORDERED: diphenhydrAMINE 50 MG/ML SDV IVPUSH PRN (15:18)
[2020-07-29] MEDS ORDERED: ePHEDrine 50 MG/ML SDV IVPUSH PRN (15:18)
[2020-07-29] MEDS ORDERED: Bupivacaine/fentaNYL/NS 100 ML Bag EPIDUR PRN (15:18)
[2020-07-29] MEDS: Lactated Ringers 1,000 ML IV SCH ×3 (15:31→16:34)
--- NOTE | 2020-07-29 15:45 | PCM.PREANE ---
Preanesthetic Assessment - Procedure Proposed Procedure: epidural - Anesthesia/Transfusion/Family Hx Anesthesia History: Prior Anesthesia Without Reaction Family History of Anesthesia Reaction: No Transfusion History: No Prior Transfusion(s) Intubation History: Unknown - Review of Systems General: Fatigue Pulmonary: No Symptoms Cardiovascular: No Symptoms Gastrointestinal: Abdominal Pain (labor) Neurological: No Symptoms Other: Reports: None - Physical Assessment Vital Signs: Last Vital Signs Temp 36.9 C 07/29/20 14:04 Pulse 91 07/29/20 14:04 Resp 14 07/29/20 14:04 BP 126/71 07/29/20 14:04 Pulse Ox 98 07/29/20 14:04 Height: 1.68 m Weight: 97.976 kg ASA Class: 2 Mental Status: Alert & Oriented x3 Airway Class: Mallampati = 1 Dentition: Reports: Normal Dentition Thyro-Mental Finger Breadths: 3 Mouth Opening Finger Breadths: 3 ROM/Head Extension: Full Lungs: Clear to Auscultation, Normal Respiratory Effort Cardiovascular: Regular Rate, Regular Rhythm - Lab Values: Laboratory Last Values WBC 11.19 K/mm3 (3.98-10.04) H 07/29/20 14:20 RBC 4.09 M/mm3 (3.98-5.22) 07/29/20 14:20 Hgb 13.3 gm/dl (11.2-15.7) 07/29/20 14:20 Hct 39.1 % (34.1-44.9) 07/29/20 14:20 MCV 95.6 fl (79.4-94.8) H D 07/29/20 14:20 MCH 32.5 pg (25.6-32.2) H 07/29/20 14:20 MCHC 34.0 g/dl (32.2-35.5) 07/29/20 14:20 RDW Std Deviation 43.8 fL (36.4-46.3) 07/29/20 14:20 Plt Count 178 K/mm3 (182-369) L 07/29/20 14:20 MPV 10.2 fl (9.4-12.3) 07/29/20 14:20 Neut % (Auto) 72.4 % (34.0-71.1) H 07/29/20 14:20 Lymph % (Auto) 17.9 % (19.3-51.7) L 07/29/20 14:20 [place] % (Auto) 8.8 % (4.7-12.5) 07/29/20 14:20 Eos % (Auto) 0.3 (0.7-5.8) L 07/29/20 14:20 Baso % (Auto) 0.2 % (0.1-1.2) 07/29/20 14:20 Neut # (Auto) 8.11 K/mm3 (1.56-6.13) H 07/29/20 14:20 Lymph # (Auto) 2.00 K/mm3 (1.18-3.74) 07/29/20 14:20 [place] # (Auto) 0.99 K/mm3 (0.24-0.36) H 07/29/20 14:20 Eos # (Auto) 0.03 K/mm3 (0.04-0.36) L 07/29/20 14:20 Baso # (Auto) 0.02 K/mm3 (0.01-0.08) 07/29/20 14:20 Blood Type A POSITIVE 07/29/20 14:20 Gel Antibody Screen Negative 07/29/20 14:20 - Allergies Allergies/Adverse Reactions: Allergies Allergy/AdvReac Type Severity Reaction Status Date / Time bee stings Allergy Anaphylactic Uncoded 07/29/20 15:02 Shock - Anesthesia Plan Pre-Op Medication Ordered: None - Acknowledgements Anesthesia Type Planned: Epidural Pt an Appropriate Candidate for the Planned Anesthesia: Yes Alternatives and Risks of Anesthesia Discussed w Pt/Guardian: Yes Pt/Guardian Understands and Agrees with Anesthesia Plan: Yes PreAnesthesia Questionnaire HEENT History: Reports: None Gastrointestinal History: Reports: GERD Other Gastrointestinal History: Managed with TUMS and only problem for 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 Hematologic History: Reports: Anemia Other Hematologic History: No current anemia but hx with - Infectious Disease History Infectious Disease History: Reports: None - Past Surgical History HEENT Surgical History: Reports: Oral Surgery Other HEENT Surgeries/Procedures: [place] teeth extraction GI Surgical History: Reports: None Musculoskeletal Surgical History: Reports: None - SUBSTANCE USE Tobacco Use Status *Q: Never Tobacco User Second Hand Smoke Exposure: No Recreational Drug Use History: No - HOME MEDS Home Medications: Home Meds Acetaminophen [Tylenol] 650 mg PO Q4H PRN tablet 09/08/18 [Rx] Vit with Ca/FA/Iron [ Plus Iron] 1 each PO DAILY tablet 09/08/18 [Rx] - CURRENT (IN HOUSE) MEDS Current Meds: Current Medications Diphenhydramine HCl (Diphenhydramine 50 Mg/Ml Sdv) 25 mg IVPUSH Q6H PRN PRN Reason: pruritis Ephedrine Sulfate (Ephedrine 50 Mg/Ml Sdv) 5 mg IVPUSH ASDIRECTED PRN PRN Reason: Hypotension Fentanyl (Fentanyl 100 Mcg/2 Ml Sdv) 100 mcg EPIDUR Q3H PRN PRN Reason: Pain Last Admin: 07/29/20 15:31 Dose: 100 mcg Documented by: Fentanyl/Bupivacaine HCl (Bupivacaine/Fentanyl/Ns 100 Ml Bag) 100 ml EPIDUR ASDIRECTED PRN PRN Reason: Pain Last Admin: 07/29/20 15:31 Dose: 100 ml Documented by: Oxytocin/Lactated Ringer's (Pitocin In Lr 10 Units/1,000 Ml) 10 unit in 1,000 mls @ 12 mls/hr IV TITRATE MARY JANE; Protocol Oxytocin/Lactated Ringer's (Pitocin In Lr 10 Units/1,000 Ml) 10 unit in 1,000 mls @ 100 mls/hr IV .CONTINUOUS MARY JANE Lactated Ringer's (Ringers, Lactated) 1,000 mls @ 100 mls/hr IV ASDIRECTED MARY JANE Last Admin: 07/29/20 15:33 Dose: 100 mls/hr Documented by: Nalbuphine HCl (Nalbuphine 10 Mg/1 Ml Vial) 10 mg IVPUSH Q2H PRN PRN Reason: Pain Ondansetron HCl (Ondansetron 4 Mg/2 Ml Sdv) 4 mg IVPUSH Q4H PRN PRN Reason: Nausea/Vomiting Sodium Chloride (Sodium Chloride 0.9% 10 Ml Syringe) 10 ml FLUSH ASDIRECTED PRN PRN Reason: Keep Vein Open
[2020-07-29] MEDS ORDERED: Terbutaline 1 MG/ML SDV ONE (16:14)
[2020-07-29] MEDS ORDERED: Terbutaline 1 MG/ML SDV SUBCUT ONE (16:16)
[2020-07-29] MEDS ORDERED: Terbutaline 1 MG/ML SDV IV ONE (16:33)
[2020-07-29] MEDS ORDERED: Sodium Chloride 0.9% 1,000 ML ONE (16:45)
[2020-07-29] MEDS ORDERED: Sodium Chloride 0.9% 1,000 ML IV SCH (17:00)
--- NOTE | 2020-07-29 17:25 | PCM.LDHP ---
L&D History of Present Illness - General Date of Service: 07/29/20 Admit Problem/Dx: Patient Status Order with Admit Dx/Problem 07/29/20 14:04 Patient Status [ADT] Routine Admission Diagnosis/Problem Admission Diagnosis/Problem 07/29/20 17:18 Leta is a 29-year-old 3 para 2-0-0-2 white female at 38-6/7 weeks gestational age with an JUAN R of 08/06/2020 was admitted in active labor with advanced cervical dilation. Source of Information: Patient History Limitations: Reports: No Limitations - History of Present Illness Introduction:: Leta is a 29-year-old 3 para 2-0-0-2 white female at 38-6/7 weeks gestational age with an JUAN R of 08/06/2020 was admitted in active labor with advanced cervical dilation. She reports starting in labor approximately yesterday to early this morning with mild contractions. They have increased throughout the course of the day. They were occurring every 3 to 5 minutes at the time of admission. At that time she is noted to be 3 to 4 cm, 90% effaced, bulging bag terrell and contractions were consistent with her reported frequency. They were moderate to intense in strength. Heart tones are generally reassuring upon admission. 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 Patient had normal menarche. Cycles regular. Last menstrual period started on 10/18/2019 and was certain. She is not using any control time of conception. Ultrasound done on 12/31/2019 given JUAN R of 08/06/2020. Her dating of was based on this early ultrasound. She has had a regular course having had her first visit at 8-5/7 weeks and regular visits since that time. She has had a weight gain of approximately 40 pounds. Her fundal height growth has been appropriate her vital signs been stable. Laboratory testing in shows her blood to be a positive with negative antibody screen. First hemoglobin is 13.8 g/dL and platelets are 232,000. Rubella titer shows immunity. Her RPR is nonreactive and her hepatitis B surface antigen test is nonreactive. Second trimester hemoglobin was 12.9 g/dL and platelets are 188,000. 1 hour glucose was normal at 84 mg/dL. Her group B strep screen was negative. Allergies: No known drug allergies. She is allergic to bee stings. Medications: 1. vitamins daily 2. Iron supplementation daily. Past medical history: 1. Normal spontaneous vaginal delivery x2 2. Spondylolysis Past surgical history: [place] teeth extraction. Family history: Father with hypertension. Father also with melanoma, hyperlipidemia and gout along with diabetes type 2. Maternal grandfather with Alzheimer's disease history. Maternal grandmother with type of cancer, not type not known. Paternal grand father with colorectal cancer and paternal grandmother with thyroid disease. Mother brother x3 and son with no problems. Father the baby has had a heart defect. Social history: Patient is . is Dejuan Juarez. Patient is a [id number] mom. 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 She does not use any significant also alcohol, drugs or tobacco. They live in [place], [place]. Review of systems: Review of systems: In general patient has no complaints. She is rema. They are moderate in nature. She denies any leakage of fluid or bleeding. Baby has been active. Skin: Negative Lungs: No infectious symptoms or shortness of breath Cardiovascular: No chest pain or exercise intolerance Breasts: changes noted. GI: Negative : changes noted. Musculoskeletal: Negative Neurological: Negative Physical exam: In general the patient is well-developed, well-nourished, pleasant female of stated age in no acute distress. Skin is warm dry without lesions. HEENT, neck and back within normal limits. Lungs are clear with good breath sounds in all lung snyder. Cardiovascular exam shows regular and rhythm without murmurs. Breast exam deferred Abdomen is gravid with last fundal height in clinic at 37 cm. Baby in vertex presentation. Genital digital exam is as recorded above. Extremities and neurological exam are grossly within normal limits. 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 Hematologic History: Reports: Anemia Other Hematologic History: No current anemia but hx with - Infectious Disease History Infectious Disease History: Reports: None - Past Surgical History HEENT Surgical History: Reports: Oral Surgery Other HEENT Surgeries/Procedures: [place] teeth extraction GI Surgical History: Reports: None Musculoskeletal Surgical History: Reports: None Social & Family History - Family History Family Medical History: No Pertinent Family History - Tobacco Use Tobacco Use Status *Q: Never Tobacco User Second Hand Smoke Exposure: No - Caffeine Use Caffeine Use: Reports: Soda Other Caffeine Use: 2 cups daily average - Recreational Drug Use Recreational Drug Use: No H&P Review of Systems - Review of Systems: Review Of Systems: See Below L&D Exam - Exam Exam: See Below - Vital Signs Vital Signs: Last Vital Signs Temp 36.9 C 07/29/20 14:04 Pulse 91 07/29/20 14:04 Resp 14 07/29/20 14:04 BP 126/71 07/29/20 14:04 Pulse Ox 98 07/29/20 14:04 Weight: 97.976 kg - Patient Data Lab Results Last 24 hrs: Laboratory Results - last 24 hr 07/29/20 07/29/20 07/29/20 Range/Units 14:20 14:20 14:45 WBC 11.19 H (3.98-10.04) K/mm3 RBC 4.09 (3.98-5.22) M/mm3 Hgb 13.3 (11.2-15.7) gm/dl Hct 39.1 (34.1-44.9) % MCV 95.6 H D (79.4-94.8) fl MCH 32.5 H (25.6-32.2) pg MCHC 34.0 (32.2-35.5) g/dl RDW Std Deviation 43.8 (36.4-46.3) fL Plt Count 178 L (182-369) K/mm3 MPV 10.2 (9.4-12.3) fl Neut % (Auto) 72.4 H (34.0-71.1) % Lymph % (Auto) 17.9 L (19.3-51.7) % Atkinson % (Auto) 8.8 (4.7-12.5) % Eos % (Auto) 0.3 L (0.7-5.8) Baso % (Auto) 0.2 (0.1-1.2) % Neut # (Auto) 8.11 H (1.56-6.13) K/mm3 Lymph # (Auto) 2.00 (1.18-3.74) K/mm3 Atkinson # (Auto) 0.99 H (0.24-0.36) K/mm3 Eos # (Auto) 0.03 L (0.04-0.36) K/mm3 Baso # (Auto) 0.02 (0.01-0.08) K/mm3 SARS-CoV-2 RNA (HALEY) Negative (NEGATIVE) Blood Type A POSITIVE Gel Antibody Screen Negative Result Diagrams: 07/29/20 14:20 - Problem List (1) 38 weeks gestation of SNOMED Code(s): 28611638 ICD Code: Z3A.38 - 38 WEEKS GESTATION OF Status: Acute Current Visit: Yes (2) Active labor at term SNOMED Code(s): 14059550 ICD Code: [id number] - Status: Acute Current Visit: Yes Problem List Initiated/Reviewed/Updated: Yes Orders Last 24hrs: Active Orders 24 hr Category Date Time Status Patient Status [ADT] Routine ADT 07/29/20 14:04 Active Activity as Tolerated [RC] PFP Care 07/29/20 14:04 Active Communication Order [RC] ASDIRECTED Care 07/29/20 14:04 Active Communication Order [RC] ASDIRECTED Care 07/29/20 15:17 Active Cooling Warming Measures [RC] ASDIRECTED Care 07/29/20 15:17 Active Heart Tones [RC] ASDIRECTED Care 07/29/20 14:04 Active Notify Provider [RC] ASDIRECTED Care 07/29/20 15:17 Active Notify Provider [RC] ASDIRECTED Care 07/29/20 15:18 Active Notify Provider [RC] PFP Care 07/29/20 14:04 Active Notify Provider [RC] PRN Care 07/29/20 14:04 Active Oxygen Therapy [RC] ASDIRECTED Care 07/29/20 15:17 Active Peripheral IV Care [RC] . DIRECTED Care 07/29/20 14:04 Active Pulse Oximetry [RC] ASDIRECTED Care 07/29/20 15:17 Active Vital Signs [RC] PER UNIT ROUTINE Care 07/29/20 14:04 Active Vital Signs [RC] Q1H Care 07/29/20 15:17 Active Regular Diet [DIET] Diet 07/29/20 Lunch Active RAPID PLASMA REAGIN,RPR [CHEM] Routine Lab 07/29/20 14:20 Received Bupivacaine/fentaNYL/NS [fentaNYL/Bupivacaine/NS 2 MCG- Med 07/29/20 15:18 Active 0.125% 100 ML] 100 ml EPIDUR ASDIRECTED PRN Lactated Ringers [Ringers, Lactated] 1,000 ml Med 07/29/20 14:15 Active IV ASDIRECTED Nalbuphine [Nubain] Med 07/29/20 14:04 Active 10 mg IVPUSH Q2H PRN Ondansetron [Zofran] Med 07/29/20 14:04 Active 4 mg IVPUSH Q4H PRN Oxytocin/Lactated Ringers [Pitocin in LR 10 Units/1,000 Med 07/29/20 14:15 Active ML] 10 unit in 1,000 ml IV .CONTINUOUS Oxytocin/Lactated Ringers [Pitocin in LR 10 Units/1,000 Med 07/29/20 14:15 Active ML] 10 unit in 1,000 ml IV TITRATE Sodium Chloride 0.9% [Normal Saline] 1,000 ml Med 07/29/20 17:00 Active IV ASDIRECTED Sodium Chloride 0.9% [Saline Flush] Med 07/29/20 14:04 Active 10 ml FLUSH ASDIRECTED PRN diphenhydrAMINE [Benadryl] Med 07/29/20 15:18 Active 25 mg IVPUSH Q6H PRN ePHEDrine [ePHEDrine sulfate] Med 07/29/20 15:18 Active 5 mg IVPUSH ASDIRECTED PRN fentaNYL [Sublimaze] Med 07/29/20 15:18 Active 100 mcg EPIDUR Q3H PRN Electronic Heart Tones Ext w TOCO [WOMSER] Oth 07/29/20 14:04 Ordered Routine Electronic Heart Tones Internal [WOMSER] Per Unit Oth 07/29/20 14:04 Ordered Routine Peripheral IV Insertion Adult [OM.PC] Routine Oth 07/29/20 14:04 Ordered Resuscitation Status Routine Resus Stat 07/29/20 14:04 Ordered Medication Orders Diphenhydramine HCl (Diphenhydramine 50 Mg/Ml Sdv) 25 mg IVPUSH Q6H PRN PRN Reason: pruritis Ephedrine Sulfate (Ephedrine 50 Mg/Ml Sdv) 5 mg IVPUSH ASDIRECTED PRN PRN Reason: Hypotension Last Admin: 07/29/20 16:09 Dose: 5 mg Documented by: DODIE Fentanyl (Fentanyl 100 Mcg/2 Ml Sdv) 100 mcg EPIDUR Q3H PRN PRN Reason: Pain Last Admin: 07/29/20 15:31 Dose: 100 mcg Documented by: DODIE Fentanyl/Bupivacaine HCl (Bupivacaine/Fentanyl/Ns 100 Ml Bag) 100 ml EPIDUR ASDIRECTED PRN PRN Reason: Pain Last Admin: 07/29/20 15:31 Dose: 100 ml Documented by: DODIE Oxytocin/Lactated Ringer's (Pitocin In Lr 10 Units/1,000 Ml) 10 unit in 1,000 mls @ 12 mls/hr IV TITRATE MARY JANE; Protocol Oxytocin/Lactated Ringer's (Pitocin In Lr 10 Units/1,000 Ml) 10 unit in 1,000 mls @ 100 mls/hr IV .CONTINUOUS MARY JANE Lactated Ringer's (Ringers, Lactated) 1,000 mls @ 100 mls/hr IV ASDIRECTED MARY JANE Last Admin: 07/29/20 16:34 Dose: 100 mls/hr Documented by: [email or web address] Infusion: 07/29/20 16:34 Dose: 100 mls/hr Documented by: [email or web address] Admin: 07/29/20 15:33 Dose: 100 mls/hr Documented by: [email or web address] Infusion: 07/29/20 15:33 Dose: 100 mls/hr Documented by: [email or web address] Admin: 07/29/20 15:31 Dose: 100 mls/hr Documented by: DODIE Sodium Chloride (Normal Saline) 1,000 mls @ 100 mls/hr IV ASDIRECTED MARY JANE Nalbuphine HCl (Nalbuphine 10 Mg/1 Ml Vial) 10 mg IVPUSH Q2H PRN PRN Reason: Pain Ondansetron HCl (Ondansetron 4 Mg/2 Ml Sdv) 4 mg IVPUSH Q4H PRN PRN Reason: Nausea/Vomiting Sodium Chloride (Sodium Chloride 0.9% 10 Ml Syringe) 10 ml FLUSH ASDIRECTED PRN PRN Reason: Keep Vein Open Assessment/Plan Comment:: 1. Leta is a 29-year-old 3 para 2-0-0-2 white female at 38-6/7 weeks gestational age with an JUAN R of 08/06/2020 was admitted in active labor with advanced cervical dilation. 2. Group B strep negative 3. Patient plans to breast-feed 4. Patient desires epidural 5. Rubella immune, RPR nonreactive. Patient is Covid negative. Plan: 1. Anticipate 2. Support breast-feeding decision 3. Epidural for labor analgesia
--- NOTE | 2020-07-29 18:13 | PCM.SN.2 ---
- Free Text/Narrative Note: Delivery note: Stage I: Leta is a 29-year-old 3 para 2-0-0-2 white female at 38-6/7 weeks gestational age with an JUAN R of 08/06/2020 was admitted in active labor with advanced cervical dilation. She is moving well to labor until the head was well applied to the cervix. At this time she is 4 to 5 cm dilated and 90% effaced. Artificial rupture of membranes was undertaken and resulted in clear amniotic fluid. Shortly after rupture of membranes however she began having very intense contractions and began having variable decelerations. The baby had a period of bradycardia which was approximately 2 minutes in length down to the 70s to 90s. Shortly thereafter scalp electrode and internal pressure catheter was placed. She underwent amnioinfusion with normal [id number] cc initially and then a maintenance infusion of 100 cc/h thereafter. With this heart tones improved somewhat. Stage II: As the baby descended of the decelerations recurred again. At this time she is completely dilated was pushing well and the baby was then delivered. Delivered a viable, hernandez, male infant with Apgars of 8 and 9, a weight of 3330 g (7 pounds 5.5 ounces) and a length of 20 inches at 1741 hrs. on 07/29/2020. The baby's name was Brody Ruvalcaba. The baby was delivered by vacuum extraction delivery. Vacuum extraction had been discussed with the mom and dad prior to delivery. The risks, benefits, alternatives of care including emergent section were discussed in detail with patient. She appeared to understand and gave verbal permission for the vacuum extraction. The vacuum extraction delivery occurred with just 1 contraction. No pop offs are noted. The baby rotated from a direct occiput posterior to a direct occiput anterior position during the course of the delivery. The baby was placed on mom's abdomen. The umbilical cord is allowed to pulsate for approximately 2 minutes and then was clamped x2 and cut by the baby's father Dejuan. The umbilical cord had 3 vessels. Pitocin using the routine infusion concentration of 10 units of Pitocin per 1000 cc of IV fluid was then run at 500 cc an hour to facilitate increase in uterine tone and decrease likelihood of bleeding. The perineum appeared intact and no suturing was required. Stage III: The placenta delivered in a Piña presentation at 1744 hrs., appeared complete and intact and was discarded per patient desire. Estimated blood loss was 250 cc. Patient plans to breast-feed. Condition: Good.
[2020-07-29] MEDS ORDERED: Docusate Sodium 100 MG Cap PO PRN (18:15)
[2020-07-29] MEDS ORDERED: Witch Hazel Medicated Pads 40/Jar TOP PRN (18:15)
[2020-07-29] MEDS ORDERED: Acetaminophen 325 MG Tab PO PRN (18:15)
[2020-07-29] MEDS ORDERED: Benzocaine/Menthol 20%-0.5% Spray 56 GM Canister TOP PRN (18:15)
[2020-07-29] MEDS ORDERED: Ibuprofen 600 MG Tab PO PRN (18:15)
--- NOTE | 2020-07-30 08:05 | PCM48HPAN ---
Post Anesthesia Note - EVALUATION WITHIN 48HRS OF ANESTHETIC Vital Signs in Normal Range: Yes Patient Participated in Evaluation: Yes Respiratory Function Stable: Yes Airway Patent: Yes Cardiovascular Function Stable: Yes Hydration Status Stable: Yes Pain Control Satisfactory: Yes Nausea and Vomiting Control Satisfactory: Yes Mental Status Recovered: Yes Vital Signs: Last Vital Signs Temp 36.7 C 07/30/20 04:20 Pulse 88 07/30/20 04:20 Resp 14 07/30/20 04:20 BP 104/67 07/30/20 04:20 Pulse Ox 94 L 07/30/20 04:20 - COMMENTS/OBSERVATIONS Free Text/Narrative:: Epidural did not work well. She had pain coverage at the start and then it just went away. She had a quick delivery following epidural placement. No further questions. Education provided.
--- NOTE | 2020-07-30 08:57 | PCM.DCSUM1 ---
Discharge Summary - Hospital Course Free Text/Narrative:: [place] [facility] Provider Simple Note Patient Name: LETA UREÑA Date of : 89 Patient Status: Inpatient Attending Provider: Gee Rose Date: 07/29/20 18:01 Initialization Date: 07/29/20 18:01 - Free Text/Narrative Note: Delivery note: Stage I: Leta is a 29-year-old 3 para 2-0-0-2 white female at 38-6/7 weeks gestational age with an JUAN R of 08/06/2020 was admitted in active labor with advanced cervical dilation. She is moving well to labor until the head was well applied to the cervix. At this time she is 4 to 5 cm dilated and 90% effaced. Artificial rupture of membranes was undertaken and resulted in clear amniotic fluid. Shortly after rupture of membranes however she began having very intense contractions and began having variable decelerations. The baby had a period of bradycardia which was approximately 2 minutes in length down to the 70s to 90s. Shortly thereafter scalp electrode and internal pressure catheter was placed. She underwent amnioinfusion with normal [id number] cc initially and then a maintenance infusion of 100 cc/h thereafter. With this heart tones improved somewhat. Stage II: As the baby descended of the decelerations recurred again. At this time she is completely dilated was pushing well and the baby was then delivered. Delivered a viable, hernandez, male with Apgars of 8 and 9, a weight of 3330 g (7 pounds 5.5 ounces) and a length of 20 inches at 1741 hrs. on 07/29/2020. The baby's name was Brody Ruvalcaba. The baby was delivered by vacuum extraction delivery. Vacuum extraction had been discussed with the mom and dad prior to delivery. The risks, benefits, alternatives of care including emergent section were discussed in detail with patient. She appeared to understand and gave verbal permission for the vacuum extraction. The vacuum extraction delivery occurred with just 1 contraction. No pop offs are noted. The baby rotated from a direct occiput posterior to a direct occiput anterior position during the course of the delivery. The baby was placed on mom's abdomen. The umbilical cord is allowed to pulsate for approximately 2 minutes and then was clamped x2 and cut by the baby's father Dejuan. The umbilical cord had 3 vessels. Pitocin using the routine infusion concentration of 10 units of Pitocin per 1000 cc of IV fluid was then run at 500 cc an hour to facilitate increase in uterine tone and decrease likelihood of bleeding. The perineum appeared intact and no suturing was required. Stage III: The placenta delivered in a Piña presentation at 1744 hrs., appeared complete and intact and was discarded per patient desire. Estimated blood loss was 250 cc. Patient plans to breast-feed. Condition: Good. HPI Initial Comments: [facility] Provider Simple Note Patient Name: LETA UREÑA Date of : [birth year] Patient Status: Inpatient Attending Provider: Gee Rose Date: 07/29/20 18:01 Initialization Date: 07/29/20 18:01 - Free Text/Narrative Note: Delivery note: Stage I: Leta is a 29-year-old 3 para 2-0-0-2 white female at 38-6/7 weeks gestational age with an JUAN R of 08/06/2020 was admitted in active labor with advanced cervical dilation. She is moving well to labor until the head was well applied to the cervix. At this time she is 4 to 5 cm dilated and 90% effaced. Artificial rupture of membranes was undertaken and resulted in clear amniotic fluid. Shortly after rupture of membranes however she began having very intense contractions and began having variable decelerations. The baby had a period of bradycardia which was approximately 2 minutes in length down to the 70s to 90s. Shortly thereafter scalp electrode and internal pressure catheter was placed. She underwent amnioinfusion with normal [id number] cc initially and then a maintenance infusion of 100 cc/h thereafter. With this heart tones improved somewhat. Stage II: As the baby descended of the decelerations recurred again. At this time she is completely dilated was pushing well and the baby was then delivered. Delivered a viable, hernandez, male infant with Apgars of 8 and 9, a weight of 3330 g (7 pounds 5.5 ounces) and a length of 20 inches at 1741 hrs. on 07/29/2020. The baby's name was Brody Ruvalcaba. The baby was delivered by vacuum extraction delivery. Vacuum extraction had been discussed with the mom and dad prior to delivery. The risks, benefits, alternatives of care including emergent section were discussed in detail with patient. She appeared to understand and gave verbal permission for the vacuum extraction. The vacuum extraction delivery occurred with just 1 contraction. No pop offs are noted. The baby rotated from a direct occiput posterior to a direct occiput anterior position during the course of the delivery. The baby was placed on mom's abdomen. The umbilical cord is allowed to pulsate for approximately 2 minutes and then was clamped x2 and cut by the baby's father Dejuan. The umbilical cord had 3 vessels. Pitocin using the routine infusion concentration of 10 units of Pitocin per 1000 cc of IV fluid was then run at 500 cc an hour to facilitate increase in uterine tone and decrease likelihood of bleeding. The perineum appeared intact and no suturing was required. Stage III: The placenta delivered in a Piña presentation at 1744 hrs., appeared complete and intact and was discarded per patient desire. Estimated blood loss was 250 cc. Patient plans to breast-feed. Condition: Good. Brief History: [facility] . Provider Simple Note. Patient Name: LETA UREÑA [facility] Record Number: [id number]. Date of : [birth year]Patient Status: Inpatient. Attending Provider: Gee Rose FAccount Number: [id number]. Date: 07/29/20 18:01Initialization Date: 07/29/20 18:01. - Free Text/Narrative. Note: Delivery note: Stage I: Leta is a 29-year-old 3 para 2-0-0-2 white female at 38-6/7 weeks gestational age with an JUAN R of 08/06/2020 was admitted in active labor with advanced cervical dilation. She is moving well to labor until the head was well applied to the cervix. At this time she is 4 to 5 cm dilated and 90% effaced. Artificial rupture of membranes was undertaken and resulted in clear amniotic fluid. Shortly after rupture of membranes however she began having very intense contractions and began having variable decelerations. The baby had a period of bradycardia which was approximately 2 minutes in length down to the 70s to 90s. Shortly thereafter scalp electrode and internal pressure catheter was placed. She underwent amnioinfusion with normal [id number] cc initially and then a maintenance infusion of 100 cc/h thereafter. With this heart tones improved somewhat. Stage II: As the baby descended of the decelerations recurred again. At this time she is completely dilated was pushing well and the baby was then delivered. Delivered a viable, hernandez, male with Apgars of 8 and 9, a weight of 3330 g (7 pounds 5.5 ounces) and a length of 20 inches at 1741 hrs. on 07/29/2020. The baby's name was Brody Ruvalcaba. The baby was delivered by vacuum extraction delivery. Vacuum extraction had been discussed with the mom and dad prior to delivery. The risks, benefits, alternatives of care including emergent section were discussed in detail with patient. She appeared to understand and gave verbal permission for the vacuum extraction. The vacuum extraction delivery occurred with just 1 contraction. No pop offs are noted. The baby rotated from a direct occiput posterior to a direct occiput anterior position during the course of the delivery. The baby was placed on mom's abdomen. The umbilical cord is allowed to pulsate for approximately 2 minutes and then was clamped x2 and cut by the baby's father Dejuan. The umbilical cord had 3 vessels. Pitocin using the routine infusion concentration of 10 units of Pitocin per 1000 cc of IV fluid was then run at 500 cc an hour to facilitate increase in uterine tone and decrease likelihood of bleeding. The perineum appeared intact and no suturing was required. Stage III: The placenta delivered in a Piña presentation at 1744 hrs., appeared complete and intact and was discarded per patient desire. Estimated blood loss was 250 cc. Patient plans to breast-feed. Condition: Good. Diagnosis: Stroke: No - Discharge Data Discharge Date: 07/30/20 Discharge Disposition: Home, Self-Care 01 Condition: Good - Referral to Home Health Primary Care Physician: PCP None - Discharge Diagnosis/Problem(s) (1) Vacuum extractor delivery, delivered SNOMED Code(s): 633309159 ICD Code: O66.5 - ATTEMPTED APPLICATION OF VACUUM EXTRACTOR AND FORCEPS Status: Acute Current Visit: Yes (2) 38 weeks gestation of SNOMED Code(s): 56785020 ICD Code: Z3A.38 - 38 WEEKS GESTATION OF Status: Acute Current Visit: Yes - Patient Summary/Data Complications: None Consults: None Hospital Course: Uneventful - Patient Instructions Diet: Usual Diet as Tolerated Driving: Do Not Drive (X48 hours) Showering/Bathing: May Shower Notify Provider of: Fever, Increased Pain, Swelling and Redness, Drainage, Nausea and/or Vomiting - Discharge Plan *PRESCRIPTION DRUG MONITORING PROGRAM REVIEWED*: Not Applicable *COPY OF PRESCRIPTION DRUG MONITORING REPORT IN PATIENT LINDA: Not Applicable Home Medications: Home Meds Acetaminophen [Tylenol] 650 mg PO Q4H PRN tablet 09/08/18 [Rx] Vit with Ca/FA/Iron [ Plus Iron] 1 each PO DAILY tablet 09/08/18 [Rx] Acetaminophen [Tylenol] 650 mg PO Q6H PRN tablet 07/30/20 [Rx] Docusate Sodium [Colace] 100 mg PO BID PRN cap 07/30/20 [Rx] Ibuprofen [Motrin] 600 mg PO Q6H PRN tablet 07/30/20 [Rx] Patient Handouts: Care After Vaginal Delivery Referrals: Lili De Souza MD [Physician] - (Patient will call to make appointment in 2 weeks) - Discharge Summary/Plan Comment DC Time >30 min.: No - Patient Data Vitals - Most Recent: Last Vital Signs Temp 98.1 F 07/30/20 04:20 Pulse 88 07/30/20 04:20 Resp 14 07/30/20 04:20 BP 104/67 07/30/20 04:20 Pulse Ox 94 L 07/30/20 04:20 Weight - Most Recent: 216 lb I&O - Last 24 hours: Intake & Output 07/29/20 07/30/20 07/30/20 22:59 06:59 14:59 Intake Total 4000 Balance 4000 Lab Results - Last 24 hrs: Laboratory Results - last 24 hr 07/29/20 07/29/20 07/29/20 Range/Units 14:20 14:20 14:45 WBC 11.19 H (3.98-10.04) K/mm3 RBC 4.09 (3.98-5.22) M/mm3 Hgb 13.3 (11.2-15.7) gm/dl Hct 39.1 (34.1-44.9) % MCV 95.6 H D (79.4-94.8) fl MCH 32.5 H (25.6-32.2) pg MCHC 34.0 (32.2-35.5) g/dl RDW Std Deviation 43.8 (36.4-46.3) fL Plt Count 178 L (182-369) K/mm3 MPV 10.2 (9.4-12.3) fl Neut % (Auto) 72.4 H (34.0-71.1) % Lymph % (Auto) 17.9 L (19.3-51.7) % [place] % (Auto) 8.8 (4.7-12.5) % Eos % (Auto) 0.3 L (0.7-5.8) Baso % (Auto) 0.2 (0.1-1.2) % Neut # (Auto) 8.11 H (1.56-6.13) K/mm3 Lymph # (Auto) 2.00 (1.18-3.74) K/mm3 [place] # (Auto) 0.99 H (0.24-0.36) K/mm3 Eos # (Auto) 0.03 L (0.04-0.36) K/mm3 Baso # (Auto) 0.02 (0.01-0.08) K/mm3 SARS-CoV-2 RNA (HALEY) Negative (NEGATIVE) Blood Type A POSITIVE Gel Antibody Screen Negative Med Orders - Current: Current Medications Acetaminophen (Acetaminophen 325 Mg Tab) 650 mg PO Q4H PRN PRN Reason: mild pain or fever Benzocaine/Menthol (Benzocaine/Menthol 20%-0.5% [place] 56 Gm Canister) 0 gm TOP ASDIRECTED PRN PRN Reason: Perineal Comfort Measure Last Admin: 07/29/20 19:50 Dose: 1 canister Documented by: Docusate Sodium (Docusate Sodium 100 Mg Cap) 100 mg PO BID PRN PRN Reason: Constipation Last Admin: 07/30/20 08:24 Dose: 100 mg Documented by: Ibuprofen (Ibuprofen 600 Mg Tab) 600 mg PO Q4H PRN PRN Reason: Mild pain or fever Witch Audrey (Witch Audrey Medicated Pads 40/Jar) 1 pad TOP ASDIRECTED PRN PRN Reason: Perineal Comfort Measure Last Admin: 07/29/20 19:50 Dose: 1 tub Documented by: Discontinued Medications Diphenhydramine HCl (Diphenhydramine 50 Mg/Ml Sdv) 25 mg IVPUSH Q6H PRN PRN Reason: pruritis Ephedrine Sulfate (Ephedrine 50 Mg/Ml Sdv) 5 mg IVPUSH ASDIRECTED PRN PRN Reason: Hypotension Last Admin: 07/29/20 16:09 Dose: 5 mg Documented by: Fentanyl (Fentanyl 100 Mcg/2 Ml Sdv) 100 mcg EPIDUR Q3H PRN PRN Reason: Pain Last Admin: 07/29/20 15:31 Dose: 100 mcg Documented by: Fentanyl/Bupivacaine HCl (Bupivacaine/Fentanyl/Ns 100 Ml Bag) 100 ml EPIDUR ASDIRECTED PRN PRN Reason: Pain Last Admin: 07/29/20 15:31 Dose: 100 ml Documented by: Oxytocin/Lactated Ringer's (Pitocin In Lr 10 Units/1,000 Ml) 10 unit in 1,000 mls @ 12 mls/hr IV TITRATE MARY JANE; Protocol Oxytocin/Lactated Ringer's (Pitocin In Lr 10 Units/1,000 Ml) 10 unit in 1,000 mls @ 100 mls/hr IV .CONTINUOUS MARY JANE Last Admin: 07/29/20 17:43 Dose: 100 mls/hr Documented by: Lactated Ringer's (Ringers, Lactated) 1,000 mls @ 100 mls/hr IV ASDIRECTED MARY JANE Last Admin: 07/29/20 16:34 Dose: 100 mls/hr Documented by: Sodium Chloride (Normal Saline) Confirm Administered Dose 1,000 mls @ as directed .ROUTE .[facility]-MED ONE Stop: 07/29/20 16:46 Last Admin: 07/29/20 19:59 Dose: Not Given Documented by: Sodium Chloride (Normal Saline) 1,000 mls @ 100 mls/hr IV ASDIRECTED MARY JANE Last Admin: 07/29/20 16:52 Dose: 100 mls/hr Documented by: Nalbuphine HCl (Nalbuphine 10 Mg/1 Ml Vial) 10 mg IVPUSH Q2H PRN PRN Reason: Pain Ondansetron HCl (Ondansetron 4 Mg/2 Ml Sdv) 4 mg IVPUSH Q4H PRN PRN Reason: Nausea/Vomiting Sodium Chloride (Sodium Chloride 0.9% 10 Ml Syringe) 10 ml FLUSH ASDIRECTED PRN PRN Reason: Keep Vein Open Terbutaline Sulfate (Terbutaline 1 Mg/Ml Sdv) Confirm Administered Dose 1 mg .ROUTE .[facility]-MED ONE Stop: 07/29/20 16:15 Last Admin: 07/29/20 16:32 Dose: Not Given Documented by: Terbutaline Sulfate (Terbutaline 1 Mg/Ml Sdv) 0.25 mg IV ONETIME ONE Stop: 07/29/20 16:34 Last Admin: 07/29/20 16:17 Dose: 0.25 mg Documented by:
[2020-07-30 16:43] VITALS: BP 106/74; PULSE 70
== END 2020-07-30 18:45 | disposition home or self-care (01) | DRG 560 ==
LOC: JD.OBCHECK 13:05 → JD.OB 14:04 → OBSVTOIN 17:41 → JD.OB 17:41
PROVIDERS: ADMIT Obstetrics & Gynecology; ATTEND Obstetrics & Gynecology
PROC: 10D07Z6 Extraction of Products of Conception, Vacuum, Via Natural or Artificial Opening (ICD-10-PCS; principal; 2020-07-29)
PROC: 10H07YZ Insertion of Other Device into Products of Conception, Via Natural or Artificial Opening (ICD-10-PCS; 2020-07-29)
PROC: 3E0E37Z Introduction of Electrolytic and Water Balance Substance into Products of Conception, Percutaneous Approach (ICD-10-PCS; 2020-07-29)
PROC: 10907ZC Drainage of Amniotic Fluid, Therapeutic from Products of Conception, Via Natural or Artificial Opening (ICD-10-PCS; 2020-07-29)
PROC: 3E0R3BZ Introduction of Anesthetic Agent into Spinal Canal, Percutaneous Approach (ICD-10-PCS; 2020-07-29)
PROC: 00HU33Z Insertion of Infusion Device into Spinal Canal, Percutaneous Approach (ICD-10-PCS; 2020-07-29)
DX: O99.62 Diseases of the digestive system complicating childbirth (principal); K21.9 Gastro-esophageal reflux disease without esophagitis; O99.02 Anemia complicating childbirth; Z37.0 Single live birth; D64.9 Anemia, unspecified; Z20.822 Contact with and (suspected) exposure to COVID-19; Z3A.38 38 weeks gestation of pregnancy; Z91.030 Bee allergy status
CPT/HCPCS: 36415; 51702; 59025; 59409; 85025; 86592; 86850; 86900; 86901; A9270-GY; J2590; J3010; J3105; J3490; J7030; J7120; U0002

== ENCOUNTER 2020-12-09 14:08 | Emergency (ER) | payer BC ==
[2020-12-09 14:24] VITALS: BP 118/63; PULSE 70
[2020-12-09] MEDS ORDERED: Famotidine 20 MG/2 ML SDV IVPUSH ONE (14:30)
[2020-12-09] MEDS ORDERED: methylPREDNISolone Sodium Succinate 125 MG/2 ML SDV IVPUSH ONE (14:30)
[2020-12-09] MEDS ORDERED: Sodium Chloride 0.9% 10 ML Syringe FLUSH PRN (14:30)
[2020-12-09] MEDS ORDERED: diphenhydrAMINE 50 MG/ML SDV IVPUSH ONE (14:31)
--- NOTE | 2020-12-09 14:36 | EDM.PDOC ---
ED HPI GENERAL MEDICAL PROBLEM - General Chief Complaint: Allergic Reaction Stated Complaint: ALLERGIC RX TO BEE THROAT SWELLING AND ITCHING Time Seen by Provider: 12/09/20 14:25 Source of Information: Reports: Patient History Limitations: Reports: No Limitations - History of Present Illness INITIAL COMMENTS - FREE TEXT/NARRATIVE: 30-year-old female presents to the ED for evaluation after being stung by a wasp posterior aspect of her right thigh. Sting occurred about 45 minutes ago. He developed symptoms of throat swelling and closure within 3 to 4 minutes of being stung. She has generalized pruritus primarily of her lower extremities and a bit on her arms. No shortness of breath or wheezing. No hives have occurred. 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 She therefore is quite apprehensive about possible worsening of condition. She did take Benadryl 50 mg by mouth at home 45 minutes ago. Onset: Today, Sudden Onset Date: 12/09/20 Onset Time: 13:45 Duration: Minutes:, Constant Location: Reports: Neck (Feeling of throat closure swelling), Generalized (Neurolyse mild pruritus without hives.) Quality: Reports: Burning (Burning at site of wasp sting posterior right thigh) Severity: Moderate Improves with: Reports: None Worsens with: Reports: None Context: Reports: Other (Wasp sting posterior right thigh). Denies: Activity, Exercise, Lifting, Sick Contact, Trauma Associated Symptoms: Reports: Other (Generalized pruritus). 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) - Related Data Allergies Allergy/AdvReac Type Severity Reaction Status Date / Time bee stings Allergy Anaphylactic Uncoded 12/09/20 14:24 Shock Home Meds: Home Meds Vit with Ca/FA/Iron [ Plus Iron] 1 each PO DAILY tablet 09/08/18 [Rx] EPINEPHrine [Epipen 2-Igor] 0.3 mg IJ ASDIRECTED #2 auto.injct 12/09/20 [Rx] Past Medical History HEENT History: Reports: None Gastrointestinal History: Reports: GERD Other Gastrointestinal History: Managed with [employer] and only problem for pt when [employer] History: Reports: Musculoskeletal History: Reports: Back Pain, Chronic, Other (See Below) Other Musculoskeletal History: broke back-spondylosis L5 Psychiatric History: Reports: Depression Other Psychiatric History: Hx of "situational" PP depression with her 2yo- denies official dx or treatment, and it resolved spontaneously. Hematologic History: Reports: Anemia Other Hematologic History: No current anemia but hx with - Infectious Disease History Infectious Disease History: Reports: None - Past Surgical History HEENT Surgical History: Reports: Oral Surgery Other HEENT Surgeries/Procedures: [place] teeth extraction GI Surgical History: Reports: None Musculoskeletal Surgical History: Reports: None Social & Family History - Family History Family Medical History: No Pertinent Family History - Tobacco Use Tobacco Use Status *Q: Never Tobacco User - Caffeine Use Caffeine Use: Reports: Soda Other Caffeine Use: 2 cups daily average - Recreational Drug Use Recreational Drug Use: No - Living Situation & Occupation Living situation: Reports: Occupation: Unemployed ED ROS ALLERGIC REACTION - Review of Systems Review Of Systems: See Below Constitutional: Denies: Fever, Chills, Malaise, Weakness, Fatigue, Decreased Appetite, Weight Loss HEENT: Reports: Throat Swelling (Feeling of throat closing in. Phonation is normal) Respiratory: Denies: Shortness of Breath, Wheezing, Pleuritic Chest Pain, Cough, Sputum Cardiovascular: Reports: Lightheadedness. Denies: Chest Pain, Blood Pressure Problem, Claudication, Dyspnea on Exertion, Edema (Mild), Orthopnea, Palpitations Endocrine: Reports: No Symptoms GI/Abdominal: Reports: No Symptoms : Reports: No Symptoms Musculoskeletal: Reports: No Symptoms Skin: Reports: Pruritis Neurological: Reports: No Symptoms Psychiatric: Reports: No Symptoms Hematologic/Lymphatic: Reports: No Symptoms Immunologic: Reports: No Symptoms ED EXAM GENERAL NO PERIP PULSE - Physical Exam Exam: See Below Exam Limited By: No Limitations General Appearance: Alert, WD/WN, Anxious, Mild Distress, Other (Vital signs show temperature of 36.6 degrees. Heart rate 70 and sinus respiratory to 16 with with O2 sats of 97% room air. BP 04/26/1962.) Eye Exam: Bilateral Eye: Normal Inspection (No blepharal pallor or conjunctival swelling.), PERRL, Other (No swelling of the upper or lower eyelids.) Throat/Mouth: Normal Inspection, Normal Lips, Normal Oropharynx, Other (Uvula, floor of mouth and tongue are normal. Phonation is normal) Head: Atraumatic, Normocephalic Neck: Normal Inspection, Supple, Non-Tender, Full Range of Motion Respiratory/Chest: No Respiratory Distress, Lungs Clear, Normal Breath Sounds, No Accessory Muscle Use. No: Wheezing Cardiovascular: Normal Peripheral Pulses, No Edema, No Gallop, No Murmur, No Rub GI/Abdominal: Normal Bowel Sounds, Soft, Non-Tender, No Organomegaly, No Distention Extremities: Normal Inspection, Normal Range of Motion, Non-Tender, No Pedal Edema Neurological: Alert, Oriented, CN II-XII Intact, Normal Cognition Psychiatric: Normal Affect, Normal Mood Skin Exam: Warm, Dry, Intact, Normal Color Course - Vital Signs Last Recorded V/S: Last Vital Signs Temp 36.6 C 12/09/20 14: Pulse 70 12/09/20 14:21 Resp 16 12/09/20 14:21 BP 118/63 12/09/20 14:21 Pulse Ox 97 12/09/20 14:21 - Orders/Labs/Meds Orders: Active Orders 24 hr Category Date Time Status Peripheral IV Care [RC] . DIRECTED Care 12/09/20 14:30 Active Sodium Chloride 0.9% [Saline Flush] Med 12/09/20 14:30 Active 10 ml FLUSH ASDIRECTED PRN Peripheral IV Insertion Adult [OM.PC] Stat Oth 12/09/20 14:30 Ordered Medication Orders Sodium Chloride (Sodium Chloride 0.9% 10 Ml Syringe) 10 ml FLUSH ASDIRECTED PRN PRN Reason: Keep Vein Open Last Admin: 12/09/20 14:53 Dose: 10 ml Documented by: DEUCE Meds: Medications Generic Name Dose Route Start Last Admin Trade Name Freq PRN Reason Stop Dose Admin Sodium Chloride 10 ml 12/09/20 14:30 12/09/20 14:53 Sodium Chloride 0.9% 10 Ml Syringe FLUSH 10 ml ASDIRECTED PRN Administration Keep Vein Open Discontinued Medications Generic Name Dose Route Start Last Admin Trade Name Freq PRN Reason Stop Dose Admin Diphenhydramine HCl 25 mg 12/09/20 14:31 12/09/20 14:54 Diphenhydramine 50 Mg/Ml Sdv IVPUSH 12/09/20 14:32 25 mg ONETIME ONE Administration Famotidine 20 mg 12/09/20 14:30 12/09/20 14:55 Famotidine 20 Mg/2 Ml Sdv IVPUSH 12/09/20 14:31 20 mg ONETIME ONE Administration Methylprednisolone Sodium Succinate 125 mg 12/09/20 14:30 12/09/20 14:53 Methylprednisolone Sodium Succinate 125 Mg/2 Ml Sdv IVPUSH 12/09/20 14:31 125 mg ONETIME ONE Administration - Radiology Interpretation Free Text/Narrative:: 30-year-old female presents to the ED after being stung by a wasp posterior aspect of her right thigh. 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 She did manage to kill the wasp once it stung her. She did develop symptoms of throat closure and generalized pruritus within about 5 minutes of being stung. She did take Benadryl 50 mg by mouth. She arrives in the ED proximally 45 minutes after being stung. On exam lungs are clear to auscultation percussion. Her phonation is normal. There is no obvious swelling of her tongue uvula or floor the mouth. She has no urticaria. At this time she appears to have a very mild allergic reaction. She will be given Solu- Medrol 125 mg IV and Benadryl 25 mg IV since she took 50 mg by mouth at home. Pepcid 20 mg by I be as well. - Re-Assessments/Exams Free Text/Narrative Re-Assessment/Exam: 12/09/20 15:35 on reevaluation the patient is not experiencing any worsening of her symptoms if anything they are improved. No further pruritus. Very slight pressure in her throat. Lungs are clear. She will therefore be discharged to home. She will keep Benadryl on hand in case of further stings etc. Departure - Departure Time of Disposition: 15:35 Disposition: Home, Self-Care 01 Condition: Fair Clinical Impression: Systemic reaction to hymenoptera sting - Discharge Information *PRESCRIPTION DRUG MONITORING PROGRAM REVIEWED*: Not Applicable *COPY OF PRESCRIPTION DRUG MONITORING REPORT IN PATIENT LINDA: Not Applicable Prescriptions: EPINEPHrine [Epipen 2-Igor] 0.3 mg IJ ASDIRECTED #2 auto.injct Referrals: Jenae Sosa PA-C [Primary Care Provider] - Forms: ED Department Discharge Additional Instructions: Evaluation in the emergency room today in regards to a wasp sting posterior right thigh. This produced systemic signs of allergic response within a few minutes of being stung primarily that of generalized itching and feeling like her throat was closing in. Previous similar problems but worse after being stung by wasp or bee. You did the right thing by taking Benadryl 50 mg right away. Examination in the emergency room revealed lungs to be clear and there was no obvious signs of swelling of your roof of your mouth back of your throat or tongue or floor the mouth. It can also produce swelling around the airway which would only be visible with the scope. You were treated in the emergency room with intravenous Solu-Medrol which is a steroid 125 mg which will start to work in a couple hours and prevent any further allergic response from the hymenoptera sting. He received Benadryl 25 mg IV in addition to the oral 50 mg that you taken earlier Pepcid 20 mg IV which blocks the H2 receptors which can be involved in allergic reaction. You may require Benadryl 50 mg every 6 hours if needed for recurrence of itch or throat itching but once the steroid starts to work in 2 to 4 hours this usually does not happen. Of course return to the emergency room if you have develop any trouble swallowing or breathing in the next 12 hours.Script has been written for Epi pen to be used for severe allergic reacton --chest preasure with difficulty breathing. Severe hivers or throat closure. If you use the Epi pen you must get to the nearest ED as it will only by you about 1/2 hr of time. Sepsis Event Note (ED) - Evaluation Sepsis Screening Result: No Definite Risk - Focused Exam Vital Signs: Vital Signs Temp Pulse Resp BP Pulse Ox 12/09/20 14:21 36.6 C 70 16 118/63 97 - My Orders Last 24 Hours: My Active Orders 12/09/20 14:30 Peripheral IV Care [RC] . DIRECTED Sodium Chloride 0.9% [Saline Flush] 10 ml FLUSH ASDIRECTED PRN Peripheral IV Insertion Adult [OM.PC] Stat - Assessment/Plan Last 24 Hours: My Active Orders 12/09/20 14:30 Peripheral IV Care [RC] . DIRECTED Sodium Chloride 0.9% [Saline Flush] 10 ml FLUSH ASDIRECTED PRN Peripheral IV Insertion Adult [OM.PC] Stat
== END 2020-12-09 15:45 | disposition home or self-care (01) ==
LOC: JD.ED 14:08
DX: T63.481A Toxic effect of venom of other arthropod, accidental (unintentional), initial encounter (principal); Z91.030 Bee allergy status
CPT/HCPCS: 96374; 96375; 99282; J1200; J2930; J3490; 99283

== ENCOUNTER 2023-08-03 10:41 | Inpatient (IN) | payer BC ==
[2023-08-03] MEDS ORDERED: Nalbuphine 10 MG/ML Syringe IVPUSH PRN (12:51)
[2023-08-03] MEDS ORDERED: Lidocaine 1% 50 ML MDV INJECT PRN (12:51)
[2023-08-03] MEDS ORDERED: Lactated Ringers 1,000 ML IV SCH (13:00)
[2023-08-03] MEDS ORDERED: Oxytocin/Lactated Ringers 30 UNIT/500 ML BAG IV SCH (13:00)
[2023-08-03 13:23] LABS: BASOPHILS PERCENT AUTO 0.2 % (0.0-1.0); EOSINOPHILS PERCENT AUTO 0.3 % (0.0-6.0); HEMATOCRIT 39.8 % (37.0-47.0); HEMOGLOBIN 13.5 gm/dl (12.0-16.0); IMMATURE GRAN ABSOLUTE AUTO 0.15 K/mm3 (0.00-0.05); IMMATURE GRAN PERCENT AUTO 1.1 % (0.0-0.4); LYMPHOCYTES ABSOLUTE AUTO 2.7 K/mm3 (1.0-4.8); LYMPHOCYTES PERCENT AUTO 20.4 % (24.0-44.0); MEAN CORPUSCULAR HEMOGLOBIN 31.5 pg (28.0-32.0); MEAN CORPUSCULAR HGB CONC 33.9 g/dl (32.0-36.0); MEAN PLATELET VOLUME 10.4 fl (9.4-12.3); MONOCYTES ABSOLUTE AUTO 1.1 K/mm3 (0.0-0.8); NEUTROPHILS ABSOLUTE AUTO 9.2 K/mm3 (1.8-7.7); PLATELET COUNT,PLT 193 K/mm3 (150-400); RED BLOOD CELL COUNT 4.28 M/mm3 (4.10-5.30); WHITE BLOOD CELL COUNT,WBC 13.17 K/mm3 (3.9-11.3)
[2023-08-03] MEDS ORDERED: Benzocaine/Menthol 20%-0.5% Spray 78 GM Cannister TOP PRN (16:39)
[2023-08-03] MEDS ORDERED: Witch Hazel Medicated Pads 40/Jar TOP PRN (16:39)
[2023-08-03] MEDS ORDERED: Acetaminophen 325 MG Tab PO PRN (16:39)
[2023-08-03] MEDS ORDERED: Docusate Sodium 100 MG Cap PO PRN (16:39)
[2023-08-04] MEDS: Ibuprofen 800 MG Tab PO PRN (01:32)
[2023-08-04 05:47] LABS: HEMATOCRIT 33.9 % (37.0-47.0); MEAN CORPUSCULAR HEMOGLOBIN 32.1 pg (28.0-32.0); MEAN CORPUSCULAR HGB CONC 34.5 g/dl (32.0-36.0); MEAN CORPUSCULAR VOLUME 92.9 fl (83.0-99.0); MEAN PLATELET VOLUME 10.7 fl (9.4-12.3); PLATELET COUNT,PLT 175 K/mm3 (150-400); RED BLOOD CELL COUNT 3.65 M/mm3 (4.10-5.30); WHITE BLOOD CELL COUNT,WBC 16.01 K/mm3 (3.9-11.3)
[2023-08-04 05:55] LABS: HEMOGLOBIN 11.7 gm/dl (12.0-16.0)
[2023-08-04 17:24] VITALS: BP 126/82; PULSE 76
== END 2023-08-04 16:25 | disposition home or self-care (01) | DRG 560 ==
LOC: JD.OBCHECK 10:41 → JD.OB 10:51 → JD.OBCHECK 12:51 → JD.OB 12:52 → OBSVTOIN 15:54
PROVIDERS: ADMIT Obstetrics & Gynecology; ATTEND Obstetrics & Gynecology
PROC: 10E0XZZ Delivery of Products of Conception, External Approach (ICD-10-PCS; principal; 2023-08-03)
DX: O99.214 Obesity complicating childbirth (principal); E66.09 Other obesity due to excess calories; Z91.030 Bee allergy status; Z79.899 Other long term (current) drug therapy; Z86.16 Personal history of COVID-19; O99.02 Anemia complicating childbirth; Z37.0 Single live birth; Z3A.39 39 weeks gestation of pregnancy; O77.0 Labor and delivery complicated by meconium in amniotic fluid
CPT/HCPCS: 36415; 59025; 59409; 84112; 85025; 85027; 86592; 86850; 86900; 86901; A9270-GY

== ENCOUNTER 2024-01-11 12:51 | Emergency (ER) | payer BC ==
[2024-01-11 13:04] VITALS: BP 114/76; PULSE 64
[2024-01-11] MEDS: diphenhydrAMINE 50 MG/ML SDV IVPUSH ONE (13:24)
[2024-01-11] MEDS: methylPREDNISolone Sodium Succinate 125 MG/2 ML SDV IVPUSH ONE (13:26)
[2024-01-11] MEDS: Sodium Chloride 0.9% 10 ML Syringe FLUSH PRN (13:27)
[2024-01-11] MEDS: Famotidine 20 MG/2 ML SDV IVPUSH ONE (13:28)
== END 2024-01-11 15:20 | disposition home or self-care (01) ==
LOC: JD.ED 12:51
DX: T63.441A Toxic effect of venom of bees, accidental (unintentional), initial encounter (principal); Z86.16 Personal history of COVID-19; Z91.030 Bee allergy status
CPT/HCPCS: 96374; 96375; 99283; J1200; J2919; J3490; 99284